=== PATIENT | male | born 1960 | race Caucasian/White ===

== ENCOUNTER → 2021-02-03 13:21 | Outpatient (BNVA) | payer OTHER, SELFPAY | PROVIDERS: PCP Internal Medicine; Visit Provider Physician Assistant | DX: M77.11 Lateral epicondylitis, right elbow (principal); M77.12 Lateral epicondylitis, left elbow | CPT/HCPCS: 20551; J1020 ==

== ENCOUNTER 2021-04-08 11:20 | Outpatient (REF) | payer OTHER, SELFPAY | END 2021-04-08 11:21 | disposition home or self-care (01) | LOC: HO.LNP 11:20 | PROVIDERS: Visit Provider Hospitalist | DX: J01.90 Acute sinusitis, unspecified (principal); Z20.822 Contact with and (suspected) exposure to COVID-19 | CPT/HCPCS: U0003; U0005 ==

== ENCOUNTER 2021-06-24 09:23 | Outpatient (REF) | payer OTHER, SELFPAY ==
[2021-06-24 10:03] LABS: COVID-19 Test Negative (Negative)
== END 2021-06-24 09:24 | disposition home or self-care (01) ==
LOC: HO.LAB 09:23
PROVIDERS: PCP Internal Medicine; Visit Provider Internal Medicine
DX: Z20.822 Contact with and (suspected) exposure to COVID-19 (principal)
CPT/HCPCS: 36415; 87635; C9803

== ENCOUNTER → 2021-07-06 15:18 | Outpatient (BNVA) | payer OTHER, SELFPAY | PROVIDERS: PCP Internal Medicine; Visit Provider Physician Assistant | DX: M77.12 Lateral epicondylitis, left elbow (principal) | CPT/HCPCS: 20550; 20551; J1020 ==

== ENCOUNTER 2021-10-20 11:07 | Outpatient (REF) | payer OTHER, SELFPAY ==
[2021-10-20 14:35] LABS: Binax Internal Control QC Valid; Binax Now Covid-19 Ag Positive (Negative)
== END 2021-10-20 11:08 | disposition home or self-care (01) ==
LOC: HO.HMGCLDS 11:07
PROVIDERS: Visit Provider Internal Medicine
DX: Z20.822 Contact with and (suspected) exposure to COVID-19 (principal)
CPT/HCPCS: 36415; C9803

== ENCOUNTER → 2022-01-11 13:15 | Outpatient (BNVA) | payer OTHER, SELFPAY | PROVIDERS: PCP Internal Medicine; Visit Provider Physician Assistant | DX: M77.12 Lateral epicondylitis, left elbow (principal) | CPT/HCPCS: 20551; J1020 ==

== ENCOUNTER 2022-02-01 08:20 | Outpatient (REF) | payer OTHER, SELFPAY ==
--- NOTE | ~2022-02-01 | XR_ITS ---
EXAMINATION: XR HAND, LEFT CLINICAL INFORMATION: Pain left hand. COMPARISON: None TECHNIQUE: PA, lateral, and oblique views of the left hand. FINDINGS: There is loss of PIP and DIP joint space with mild periarticular spurring. No bony erosive changes. No acute fracture or lytic process seen. No abnormal soft tissue swelling. XR/XR hand LT min 3V IMPRESSION: Mild degenerative changes PIP and DIP joints. No visible acute fracture or dislocation seen.
== END 2022-02-01 08:21 | disposition home or self-care (01) ==
LOC: HO.HOSX 08:20
PROVIDERS: Visit Provider Orthopaedic Surgery
DX: M79.642 Pain in left hand (principal)
CPT/HCPCS: 73130

== ENCOUNTER 2022-02-14 15:30 | Outpatient (RCR) | payer OTHER, SELFPAY ==
--- NOTE | 2022-01-24 16:27 | MHC.OT.OEV ---
[address] [phone] F: [phone] Occupational Therapy Evaluation Diagnosis: Lateral epicondylitis ,left elbow Date of Onset: 07/15/20 Date of Surgery: Attending Provider: David Murillo PA-C Prescribed Treatment: Eval and treat MD Follow Up Appointment: History of Current Condition: Pt reports an onset of bilateral elbow pain and swelling. Referred to Orthopedics, elbows injected with some improvement, recurrence , injected, OT in [facility] with improvement . Right elbow improved with last injection and elbow protection this past June. Left not improved. Injected 2 wks ago for the 3rd time and referred to OT Lapse in care due to Covid precautions Significant Medical History: HTN. Bilateral shoulder bone spurs.. 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 Good family support Current Level of Function and Occupation Self Care, Employment, Leisure: Indep with ADL Modified work tasks to avoid left arm strain as able No golf, bowling, little yard work due to UE pain Sleep: WNL Driving: WNL Vision: Glasses Balance: Pain Assessment Pain Score: 4 Pain Scale Used: Numeric (0 - 10) Pain Location and Description: 4 left elbow. achy, pinch Aggravating Factors: Gripping,lifting , repetitive motion with the left Alleviating Factors: Skin and Soft Tissue Assessment Skin and Soft Tissue: Comments: Nerve assessment Ulnar Nerve: WNL Median Nerve: WNL Radial Nerve: WNL Comments: MMT Sensory Assessment Temperature: Light Touch: WNL Proprioception: Vibration: Comments: Edema Assessment Upper Extremity: WNL Lower Extremity: Comments: Dexterity Assessment Dexterity: WNL Comments: Special Tests Comments: AROM(PROM) Strength Cervical Cervical Flexion: Cervical Extension: Cervical Lateral Flexion: Cervical Rotation: Comments: Shoulder Flexion: Extension: Abduction: Internal Rotation: External Rotation: Comments: WNL Flexion: Extension: Abduction: Internal Rotation: External Rotation: Comments: Elbow Flexion: Extension: Pronation: Supination: Comments: WNL Flexion: Extension: Pronation: Supination: Comments: Wrist Flexion: R 75 L 60 Extension: R 50 L 55 Ulnar Deviation: Radial Deviation: Comments: L with low elbow pain on ext Flexion: Extension: Ulnar Deviation: Radial Deviation: Comments: Thumb Thumb CMC Flexion: Thumb MCP Flexion: Thumb IP Flexion: Radial Abduction: Palmar Abduction: Wingate (Kapandji 0-10): Comments: WFL Digits Index MCP: PIP: DIP: Long MCP: PIP: DIP: Ring MCP: PIP: DIP: Small MCP: PIP: DIP: Comments: WFL Gross Grasp: R 65 LB L 60 LB With pain Lateral Pinch: Two-Point Pinch: Three-Jaw Lai: Comments: L 60 lb pain free with CFB on Patient Education Primary Language: Slovenian 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 Patient demonstrates Patient verbalizes Needs reinforcement Barriers to Learning: None Readiness for Learning: Accepting Who was educated? 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 His right elbow pain is now resolved after injections and therapy however he continues to have left elbow pain limiting his daily activities. He reports no improvement in left elbow pain after the 3rd injection to his elbow 2 weeks ago. Today he presents with S+S consistent with his dx of lateral epicondylitis He will benefit from OT to improve left elbow and upper quadrant strength to prevent recurrance. STG Duration: 3 wks Short Term Goals: Pt will demo upper body warm up ex and stretching to use before work day Pt will verbalize lateral epicondylitis protection techniques with daily activities Pt will demo scapula stabilization ex for UE injury prevention Report mild difficulty using his left hand with home tasks, using activity modifications as needed Tolerate eccentric strengthening to left wrist without inc in elbow pain LTG Duration: 6 wks Chcf Goals: Indep in self management of left lateral epicondylitis Report occassional low pain with work tasks with use of CFB and modifications as needed 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
--- NOTE | 2022-02-14 16:09 | MHC.OT.DC ---
[address] [phone] F: [phone] Occupational Therapy Discharge Note Provider: David Murillo PA-C Diagnosis: Lateral epicondylitis ,left elbow Date of Surgery: Date of Evaluation: 01/24/22 Date of Discharge: 02/14/22 Treatments to Date: 4 Cancellations to Date: 0 No Shows to Date: 0 Discharge Status: Achieved Goals Improved Function Independent with HEP Discharge Summary: Pt reports occassional low left elbow pain at a 1-2 . Pt working, doing some yard work and some deck work without difficulty. He is indep with his HEP and elbow protection techniques. Left grain weigher strength is equal to his right hand at 75 lb . Goals met. Electronically Signed By: Estela Baugh OT CHT CLT Reviewed/agree with student documentation: N/A Therapist: Please Sign and return to therapist, thank you for your referral.
== END 2022-02-14 16:10 | disposition home or self-care (01) ==
LOC: HO.OT 15:30
PROVIDERS: PCP Internal Medicine; Visit Provider Physician Assistant
DX: M77.12 Lateral epicondylitis, left elbow (principal)
CPT/HCPCS: 97035; 97110; 97165

== ENCOUNTER → 2022-03-01 13:44 | Outpatient (BNVA) | payer OTHER, SELFPAY | PROVIDERS: PCP Internal Medicine; Visit Provider Orthopaedic Surgery | DX: M72.1 Knuckle pads (principal) | CPT/HCPCS: 11900; 20600; J1100 ==

== ENCOUNTER 2022-09-04 06:07 | Outpatient (REF) | payer OTHER, SELFPAY ==
[2022-09-04 11:38] LABS: MANUAL DIFF FLAG NO
[2022-09-04 11:57] LABS: Basophils Percent Auto 0.5 % (0-2); Eosinophils Absolute Auto 0.2 X10*3/uL (0.0-0.4); Eosinophils Percent Auto 2.1 % (0-4); Hematocrit 47.4 % (42.0-52.0); Hemoglobin 16.6 g/dl (14.0-18.0); Imm Gran Abs Auto 0.03 X10*3/uL (0.00-0.03); Imm Gran Pct Auto 0.4 % (0.0-0.4); Lymphocytes Absolute Auto 1.6 X10*3/uL (1.2-4.9); Lymphocytes Percent Auto 21.2 % (20-40); Mean Corpuscular Hemoglobin 33.3 pg (27.0-33.0); Mean Corpuscular Volume 95.2 fL (80.0-98.0); Mean Platelet Volume 10.9 fL (9.4-12.4); Monocytes Absolute Auto 0.8 X10*3/uL (0.1-1.2); Neutrophils Percent Auto 65.8 % (45-73); Platelet Count 200 X10*3/uL (160-400); Red Blood Count 4.98 X10*6/uL (4.60-5.80); Red Cell Distribution Width 11.4 % (11.0-16.0); White Blood Count 7.6 X10*3/uL (4.8-10.8)
[2022-09-04 12:20] LABS: Alanine Aminotransferase 57 U/L (0-40); Albumin Level 4.5 g/dL (3.5-5.0); Alkaline Phosphatase 60 U/L (39-117); Anion Gap 14 (12-20); Aspartate Amino Transferase 51 U/L (5-37); Bilirubin Total 0.8 mg/dL (0.0-1.0); Blood Urea Nitrogen 15 mg/dL (9-16); Calcium 9.5 mg/dL (8.4-10.2); Carbon Dioxide 27 mmol/L (22-29); Chloride 98 mmol/L (96-108); Cholesterol 215 mg/dL; Estimated Glomerular Filt Rate > 60; Glucose Fasting 170 mg/dL (60-99); HDL Cholesterol 46 mg/dL; LDL Cholesterol Calculated 146 mg/dl; Potassium 4.4 mmol/L (3.3-5.1); Sodium 135 mmol/L (135-145); Total Protein 7.6 g/dL (6.5-8.0); Triglycerides 119 mg/dL
== END 2022-09-04 06:08 | disposition home or self-care (01) ==
LOC: HO.HMGCLDS 06:07
PROVIDERS: PCP Internal Medicine; Visit Provider Internal Medicine
DX: Z00.00 Encounter for general adult medical examination without abnormal findings (principal); Z12.5 Encounter for screening for malignant neoplasm of prostate; Z13.0 Encounter for screening for diseases of the blood and blood-forming organs and certain disorders involving the immune mechanism; E78.5 Hyperlipidemia, unspecified; I10 Essential (primary) hypertension
CPT/HCPCS: 36415; 80053; 80061; 84153; 85025

== ENCOUNTER 2023-01-22 06:13 | Outpatient (REF) | payer OTHER, SELFPAY ==
[2023-01-22 11:12] LABS: MANUAL DIFF FLAG NO
[2023-01-22 11:23] LABS: Basophils Percent Auto 0.7 % (0-2); Eosinophils Absolute Auto 0.2 X10*3/uL (0.0-0.4); Eosinophils Percent Auto 2.8 % (0-4); Hematocrit 44.1 % (42.0-52.0); Hemoglobin 15.4 g/dl (14.0-18.0); Imm Gran Abs Auto 0.02 X10*3/uL (0.00-0.03); Imm Gran Pct Auto 0.4 % (0.0-0.4); Lymphocytes Absolute Auto 1.6 X10*3/uL (1.2-4.9); Lymphocytes Percent Auto 29.4 % (20-40); Mean Corpuscular HGB Conc 34.9 g/dl (31.0-36.0); Mean Corpuscular Volume 94.6 fL (80.0-98.0); Mean Platelet Volume 10.4 fL (9.4-12.4); Monocytes Absolute Auto 0.5 X10*3/uL (0.1-1.2); Monocytes Percent Auto 9.5 % (2-11); Neutrophils Absolute Auto 3.1 x10*3/uL (2.0-8.3); Neutrophils Percent Auto 57.2 % (45-73); Platelet Count 175 X10*3/uL (160-400); Red Blood Count 4.66 X10*6/uL (4.60-5.80); Red Cell Distribution Width 11.7 % (11.0-16.0); White Blood Count 5.4 X10*3/uL (4.8-10.8)
[2023-01-22 11:37] LABS: Alanine Aminotransferase 56 U/L (0-40); Albumin Level 4.1 g/dL (3.5-5.0); Alkaline Phosphatase 59 U/L (39-117); Anion Gap 15 (12-20); Aspartate Amino Transferase 53 U/L (5-37); Bilirubin Total 0.7 mg/dL (0.0-1.0); Blood Urea Nitrogen 10 mg/dL (9-16); Calcium 8.8 mg/dL (8.4-10.2); Carbon Dioxide 26 mmol/L (22-29); Chloride 102 mmol/L (96-108); Cholesterol 200 mg/dL; Estimated Glomerular Filt Rate > 60; Glucose Fasting 152 mg/dL (60-99); HDL Cholesterol 42 mg/dL; LDL Cholesterol Calculated 126 mg/dl; Potassium 3.8 mmol/L (3.3-5.1); Sodium 139 mmol/L (135-145); Total Protein 6.8 g/dL (6.5-8.0); Triglycerides 164 mg/dL
== END 2023-01-22 06:14 | disposition home or self-care (01) ==
LOC: HO.HMGCLDS 06:13
PROVIDERS: PCP Internal Medicine; Visit Provider Internal Medicine
DX: N28.9 Disorder of kidney and ureter, unspecified (principal); E78.5 Hyperlipidemia, unspecified; D64.9 Anemia, unspecified
CPT/HCPCS: 36415; 80053; 80061; 85025

== ENCOUNTER 2023-07-06 14:30 | Outpatient (AMB) | payer OTHER, SELFPAY ==
[2023-07-06 14:31] VITALS: BP 158/72; PULSE 86; O2SAT 99
--- NOTE | 2023-07-06 14:31 | MHC.PC.OV ---
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 Accompanied by: Self / Same As Patient Allergies oxycodone [OXYCODONE] Allergy (Intermediate, Verified 07/06/23 14:31) ITCHING acetaminophen [Percocet] Allergy (Unknown, Verified 07/06/23 14:31) itching penicillin G Allergy (Unknown, Verified 07/06/23 14:31) rash Medication List - Last Reconciled 07/10/23 by Luis Saravia MD amlodipine 10 mg PO DAILY hydrochlorothiazide 25 mg PO DAILY lisinopril 40 mg PO DAILY sildenafil (Viagra) 50 mg PO DAILY PRN Tobacco use date assessed: 01/24/23 Dental Screening Dental Screen Date: 07/06/23 Did you have a dental visit in the last 12 months?: Yes Did you have a dental problem in the last 6 months where you did not have access to dental care?: No Was dental information given to patient?: Patient has dentist HPI 3 Month F/Up HPI Details HTN on Rx; compliant PFSH Medical History Obesity High blood pressure Social History Housing: House Alcohol intake: never Patient Tobacco Use Status: Current everyday Tobacco user Tobacco use type: Cigarette e-Cigarette/Vaping Use: Never Used Second Hand Smoke Exposure: Yes service: No Current occupational status: employed 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 1. Little interest or pleasure in doing things: not at all 2. Feeling down, depressed, or hopeless: not at all 3. Trouble falling or staying asleep, or sleeping too much: not at all 4. Feeling tired or having little energy: not at all 5. Poor appetite or overeating: not at all 6. Feeling bad about yourself - or that you are a failure or have let yourself or your family down: not at all 7. Trouble concentrating on things, such as reading the newspaper or watching television: not at all 8. Moving or speaking so slowly that other people could have noticed. Or the opposite - being so fidgety or restless that you have been moving around a lot more than usual: not at all 9. Thoughts that you would be better off or of hurting yourself in some way: not at all Total score: 0 Depression Screening Interpretation: Negative Source: Developed by Drs. Vamsi Rivera, Mery Bowers, Collin Willams and colleagues, with an educational leandra from [employer]. Thrive Questionnaire Date Thrive assessed: 01/24/23 AUDIT C Alcohol Use Questionnaire (AUDIT-C) 1. How often do you have a drink containing alcohol?: Never 3. How often do you have six or more drinks on one occasion?: Never Total Score: 0 Score Reviewed/Action Taken: Yes HAIM-7 AMB Questionnaire HAIM-7 Date HAIM - 7 assessed: 01/24/23 Source: Developed by Drs. Vamsi Rivera, Mery Bowers, Collin Willams and colleagues, with an educational leandra from [employer]. Review of Systems Const Denies chills, Denies headache(s) and Denies weight loss ENT Denies headache(s) Card Denies chest pain, Denies syncope, Denies irregular heart rhythm and Denies dyspnea Resp Denies chest congestion, Denies cough and Denies dyspnea GI Denies abdominal pain, Denies change in stool character, Denies nausea and Denies vomiting Musc Denies deformity and Denies joint swelling Neuro Denies syncope and Denies headache(s) Physical exam (Primary Care) Vital Signs: Last Vital Signs Pulse 86 07/06/23 14:31 BP 158/72 H 07/06/23 14:31 Pulse Ox 99 07/06/23 14:31 Oxygen Delivery Method Room Air 07/06/23 14:31 BMI result Body Mass Index 30.0 Tobacco/Smoking Status: Tobacco use Status Tobacco use date assessed 01/24/23 07/06/23 14:37 Patient Tobacco Use Status Current everyday Tobacco 07/06/23 14:37 Tobacco use type Cigarette 07/06/23 14:37 e-Cigarette/Vaping Use Never Used 07/06/23 14:37 PHQ-9: PHQ-9 Score PHQ-9: Total score 0 07/06/23 14:37 Depression Screening Interpretation: Negative Thrive Assessment: Date of Thrive Assessment Date Thrive assessed 01/24/23 07/06/23 14:37 Const General: cooperative, comfortable, no acute distress and alert Neck Neck: Yes no lymphadenopathy Thyroid: Thyroid normal Resp Effort & Inspection: normal respiratory effort Auscultation: clear to auscultation bilaterally Percussion: percussion normal Cardio Jugular venous distension: no JVD Palpation: normal PMI Rate: regular rate Rhythm: regular rhythm Heart sounds: S1 normal heart sound present and S2 normal heart sound present GI Inspection: Yes normal to inspection Palpation (GI): No hepatosplenomegaly present Skin General skin exam: no rashes or lesions noted Extrem General: Yes no clubbing, cyanosis or edema Assessment and Plan Assessment & Plan (1) Hypertension: Code(s): I10 - Essential (primary) hypertension Plan: stable; same rx Coding Level of Care Code Est Pt Level 3 (79794) Diagnoses Hypertension I10
== END 2023-07-06 14:44 | disposition home or self-care (01) ==
PROVIDERS: PCP Internal Medicine; Visit Provider Internal Medicine
DX: I10 Essential (primary) hypertension (principal)
CPT/HCPCS: 99213

== ENCOUNTER 2023-10-05 13:58 | Outpatient (AMB) | payer OTHER, SELFPAY ==
[2023-10-05 14:02] VITALS: BP 148/80; PULSE 85; O2SAT 99; BMI 29.3
--- NOTE | 2023-10-05 14:02 | MHC.PC.OV ---
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 Accompanied by: Self / Same As Patient Allergies oxycodone [OXYCODONE] Allergy (Intermediate, Verified 10/05/23 14:03) ITCHING acetaminophen [Percocet] Allergy (Unknown, Verified 10/05/23 14:03) itching penicillin G Allergy (Unknown, Verified 10/05/23 14:03) rash Medication List - Last Reconciled 10/05/23 by Luis Saravia MD amlodipine 10 mg PO DAILY hydrochlorothiazide 25 mg PO DAILY lisinopril 40 mg PO DAILY sildenafil (Viagra) 50 mg PO DAILY PRN Tobacco use date assessed: 01/24/23 Dental Screening Dental Screen Date: 10/05/23 Did you have a dental visit in the last 12 months?: Yes Did you have a dental problem in the last 6 months where you did not have access to dental care?: No Was dental information given to patient?: Patient has dentist HPI 3mth f/u HPI Details HTN on Rx; doing well; compliant [facility] Medical History Obesity High blood pressure Social History Housing: House Alcohol intake: never Patient Tobacco Use Status: Current everyday Tobacco user Tobacco use type: Cigarette e-Cigarette/Vaping Use: Never Used Second Hand Smoke Exposure: Yes service: No Current occupational status: employed 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 Vamsi Rivera, Mery Bowers, Collin Willams and colleagues, with an educational leandra from [employer]. Review of Systems Const Denies chills, Denies headache(s) and Denies weight loss ENT Denies headache(s) Card Denies chest pain, Denies syncope, Denies irregular heart rhythm and Denies dyspnea Resp Denies chest congestion, Denies cough and Denies dyspnea GI Denies abdominal pain, Denies change in stool character, Denies nausea and Denies vomiting Musc Denies deformity and Denies joint swelling Neuro Denies syncope and Denies headache(s) Physical exam (Primary Care) Vital Signs: Last Vital Signs Pulse 85 10/05/23 14:02 BP 148/80 H 10/05/23 14:02 Pulse Ox 99 10/05/23 14:02 Oxygen Delivery Method Room Air 10/05/23 14:02 BMI result Body Mass Index 29.3 Tobacco/Smoking Status: Tobacco use Status Tobacco use date assessed 01/24/23 10/05/23 14:07 Patient Tobacco Use Status Current everyday Tobacco 10/05/23 14:07 Tobacco use type Cigarette 10/05/23 14:07 e-Cigarette/Vaping Use Never Used 10/05/23 14:07 Thrive Assessment: Date of Thrive Assessment Date Thrive assessed 01/24/23 10/05/23 14:07 Const General: cooperative, comfortable, no acute distress and alert Neck Neck: Yes no lymphadenopathy Thyroid: Thyroid normal Resp Effort & Inspection: normal respiratory effort Auscultation: clear to auscultation bilaterally Percussion: percussion normal Cardio Jugular venous distension: no JVD Palpation: normal PMI Rate: regular rate Rhythm: regular rhythm Heart sounds: S1 normal heart sound present and S2 normal heart sound present GI Inspection: Yes normal to inspection Palpation (GI): No hepatosplenomegaly present Skin General skin exam: no rashes or lesions noted Extrem General: Yes no clubbing, cyanosis or edema Assessment and Plan Assessment & Plan (1) Hypertension: Code(s): I10 - Essential (primary) hypertension Plan: stable; same rx; do labs Orders: Orders Lipid Panel Today E78.5 - Hyperlipidemia, unspecified Complete Blood Count Auto Diff Today D64.9 - Anemia, unspecified Comprehensive [place]. Panel Fast Today N28.9 - Disorder of kidney and ureter, unspecified Hemoglobin A1c Today R73.9 - Hyperglycemia, unspecified Coding Level of Care Code Est Pt Level 3 (82447) Diagnoses Hypertension I10
== END 2023-10-05 14:17 | disposition home or self-care (01) ==
PROVIDERS: PCP Internal Medicine; Visit Provider Internal Medicine
DX: I10 Essential (primary) hypertension (principal)
CPT/HCPCS: 99213

== ENCOUNTER 2023-12-31 06:21 | Outpatient (REF) | payer BC, SELFPAY ==
[2023-12-31 11:10] LABS: MANUAL DIFF FLAG NO
[2023-12-31 11:23] LABS: Basophils Percent Auto 0.5 % (0-2); Eosinophils Absolute Auto 0.2 X10*3/uL (0.0-0.4); Hematocrit 43.4 % (42.0-52.0); Hemoglobin 15.2 g/dl (14.0-18.0); Imm Gran Abs Auto 0.02 X10*3/uL (0.00-0.03); Imm Gran Pct Auto 0.4 % (0.0-0.4); Lymphocytes Absolute Auto 1.9 X10*3/uL (1.2-4.9); Lymphocytes Percent Auto 34.1 % (20-40); Mean Corpuscular Hemoglobin 33.4 pg (27.0-33.0); Mean Corpuscular Volume 95.4 fL (80.0-98.0); Mean Platelet Volume 10.1 fL (9.4-12.4); Monocytes Absolute Auto 0.5 X10*3/uL (0.1-1.2); Monocytes Percent Auto 9.2 % (2-11); Neutrophils Percent Auto 52.8 % (45-73); Platelet Count 209 X10*3/uL (160-400); Red Blood Count 4.55 X10*6/uL (4.60-5.80); Red Cell Distribution Width 11.4 % (11.0-16.0); White Blood Count 5.7 X10*3/uL (4.8-10.8)
[2023-12-31 11:48] LABS: Estimated Average Glucose 140 mg/dL; Hemoglobin A1c % 6.5 % (<6.0)
[2023-12-31 11:59] LABS: Alanine Aminotransferase 29 U/L (0-40); Albumin Level 4.1 g/dL (3.5-5.0); Alkaline Phosphatase 53 U/L (39-117); Anion Gap 16 (12-20); Aspartate Amino Transferase 25 U/L (5-37); Bilirubin Total 0.4 mg/dL (0.0-1.0); Blood Urea Nitrogen 11 mg/dL (9-16); Calcium 8.8 mg/dL (8.4-10.2); Carbon Dioxide 25 mmol/L (22-29); Chloride 104 mmol/L (96-108); Cholesterol 191 mg/dL (<200); Estimated Glomerular Filt Rate > 60; Glucose Fasting 114 mg/dL (60-99); HDL Cholesterol 45 mg/dL (>40); LDL Cholesterol Calculated 114 mg/dL (<100); Potassium 3.7 mmol/L (3.3-5.1); Sodium 141 mmol/L (135-145); Total Protein 7.2 g/dL (6.5-8.0); Triglycerides 160 mg/dL (<150)
== END 2023-12-31 06:22 | disposition home or self-care (01) ==
LOC: HO.HMGCLDS 06:21
PROVIDERS: PCP Internal Medicine; Visit Provider Internal Medicine
DX: E78.5 Hyperlipidemia, unspecified (principal); D64.9 Anemia, unspecified; R73.9 Hyperglycemia, unspecified; N28.9 Disorder of kidney and ureter, unspecified
CPT/HCPCS: 36415; 80053; 80061; 83036; 85025

== ENCOUNTER 2024-01-09 13:59 | Outpatient (AMB) | payer BC, SELFPAY ==
[2024-01-09 14:04] VITALS: BP 150/82; PULSE 93; O2SAT 100
--- NOTE | 2024-01-09 14:04 | MHC.PC.OV ---
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 Axle: Not Required per policy Accompanied by: Self / Same As Patient Allergies oxycodone [OXYCODONE] Allergy (Intermediate, Verified 01/09/24 14:04) ITCHING acetaminophen [Percocet] Allergy (Unknown, Verified 01/09/24 14:04) itching penicillin G Allergy (Unknown, Verified 01/09/24 14:04) rash Medication List - Last Reconciled 01/10/24 by Luis Saravia MD amlodipine 10 mg PO DAILY hydrochlorothiazide 25 mg PO DAILY lisinopril 40 mg PO DAILY sildenafil (Viagra) 50 mg PO DAILY PRN Tobacco use date assessed: 01/09/24 Dental Screening Dental Screen Date: 01/09/24 Did you have a dental visit in the last 12 months?: Yes Did you have a dental problem in the last 6 months where you did not have access to dental care?: No Was dental information given to patient?: Patient has dentist HPI 3 month f/u HPI Details htn on rx; non-compliant with sodium PFSH Medical History Obesity High blood pressure Social History Housing: House Alcohol intake: never Patient Tobacco Use Status: Current everyday Tobacco user Tobacco use type: Cigarette e-Cigarette/Vaping Use: Never Used Second Hand Smoke Exposure: Yes service: No Current occupational status: employed 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 Cognitive needs: Yes Hearing needs: No Vision needs: Yes Questionnaire Thrive Questionnaire Date Thrive assessed: 01/09/24 I am a: Patient What is your living situation today?: I have a steady place to live Within the past 12 months, did the food you bought not last and you didn't have the money to get more?: Never true Within the past 12 months, did you worry whether your food would run out before you got money to buy more?: Never true Do you have trouble paying for medicines?: No Do you have trouble getting transportation to medical appointments?: No Do you have trouble paying your heating and electricity bill?: No Do you have trouble taking care of your child, family member or friend?: No Do you have trouble with day-to-day activities such as bathing, preparing meals, shopping, managing finances, etc.?: No Are you currently unemployed and looking for a job?: No Are you interested in more education?: No Please select the resources that you would like help with: None THRIVE Score: 0 AUDIT C Alcohol Use Questionnaire (AUDIT-C) 1. How often do you have a drink containing alcohol?: Never 3. How often do you have six or more drinks on one occasion?: Never Total Score: 0 Score Reviewed/Action Taken: Yes HAIM-7 AMB Questionnaire HAIM-7 Date HAIM - 7 assessed: 01/09/24 Feeling nervous, anxious, or on edge: 0 = Not at all Not being able to stop or control worryin = Not at all Worrying too much about different things: 0 = Not at all Trouble relaxin = Not at all Being so restless that it is hard to sit still: 0 = Not at all Becoming easily annoyed or irritable: 0 = Not at all Feeling afraid as if something awful might happen: 0 = Not at all Total HAIM-7 score (0-4 normal; 5-9 mild; 10-14 moderate; 15-21 severe): 0 Source: Developed by Drs. Vamsi Rivera, Mery Bowers, Collin Willams and colleagues, with an educational leandra from [employer]. Review of Systems Const Denies chills, Denies headache(s) and Denies weight loss ENT Denies headache(s) Card Denies chest pain, Denies syncope, Denies irregular heart rhythm and Denies dyspnea Resp Denies chest congestion, Denies cough and Denies dyspnea GI Denies abdominal pain, Denies change in stool character, Denies nausea and Denies vomiting Musc Denies deformity and Denies joint swelling Neuro Denies syncope and Denies headache(s) Physical exam (Primary Care) Vital Signs: Last Vital Signs Pulse 93 01/09/24 14:04 BP 150/82 H 01/09/24 14:04 Pulse Ox 100 01/09/24 14:04 Oxygen Delivery Method Room Air 01/09/24 14:04 BMI result Body Mass Index 30.0 Tobacco/Smoking Status: Tobacco use Status Tobacco use date assessed 01/09/24 01/09/24 14:11 Patient Tobacco Use Status Current everyday Tobacco 01/09/24 14:11 Tobacco use type Cigarette 01/09/24 14:11 e-Cigarette/Vaping Use Never Used 01/09/24 14:11 Thrive Assessment: Date of Thrive Assessment Date Thrive assessed 01/09/24 01/09/24 14:11 Const General: cooperative, comfortable, no acute distress and alert Neck Neck: Yes no lymphadenopathy Thyroid: Thyroid normal Resp Effort & Inspection: normal respiratory effort Auscultation: clear to auscultation bilaterally Percussion: percussion normal Cardio Jugular venous distension: no JVD Palpation: normal PMI Rate: regular rate Rhythm: regular rhythm Heart sounds: S1 normal heart sound present and S2 normal heart sound present GI Inspection: Yes normal to inspection Palpation (GI): No hepatosplenomegaly present Skin General skin exam: no rashes or lesions noted Extrem General: Yes no clubbing, cyanosis or edema Assessment and Plan Assessment & Plan (1) Hypertension: Code(s): I10 - Essential (primary) hypertension Plan: decrease sodium intake Orders: Orders Lipid Panel Today E78.5 - Hyperlipidemia, unspecified Medications: Refilled lisinopril 40 mg PO DAILY 90 tabs 8RF amlodipine 10 mg PO DAILY 90 tabs 8RF hydrochlorothiazide 25 mg PO DAILY 90 tabs 8RF Coding Level of Care Code Est Pt Level 3 (46594) Diagnoses Hypertension I10
== END 2024-01-09 14:22 | disposition home or self-care (01) ==
PROVIDERS: PCP Internal Medicine; Visit Provider Internal Medicine
DX: I10 Essential (primary) hypertension (principal)
CPT/HCPCS: 99213

== ENCOUNTER 2024-04-09 13:53 | Outpatient (AMB) | payer BC, SELFPAY ==
[2024-04-09 13:57] VITALS: BP 146/68; PULSE 89; O2SAT 99; BMI 29.7
--- NOTE | 2024-04-09 13:57 | A.OFFPC_ITS ---
Vital Signs 04/09/24 13:57 Height 5 ft 10 in Weight 207 lb 0.2 oz BMI 29.7 BP 146/68 H Blood Pressure Location Lt brachial Position Sitting Pulse 89 Pulse Source Pulse Oximeter Pulse Oximetry (%) 99 Oxygen Delivery Method Room Air Intake Visit Reasons: 3 month f/u Allergies oxycodone [OXYCODONE] Allergy (Intermediate, Verified 04/09/24 14:01) ITCHING acetaminophen [Percocet] Allergy (Unknown, Verified 04/09/24 14:01) itching penicillin G Allergy (Unknown, Verified 04/09/24 14:01) rash Medication List - Last Reconciled 04/09/24 by Luis Saravia MD amlodipine 10 mg PO DAILY hydrochlorothiazide 25 mg PO DAILY lisinopril 40 mg PO DAILY sildenafil (Viagra) 50 mg PO DAILY PRN Tobacco use date assessed: 04/09/24 Dental Screening Dental Screen Date: 01/09/24 HPI 3 month f/u HPI Details htn on rx; doing well; compliant [facility] Medical History Obesity High blood pressure Social History Housing: House Alcohol intake: never Patient Tobacco Use Status: Current everyday Tobacco user Tobacco use type: Cigarette e-Cigarette/Vaping Use: Never Used Second Hand Smoke Exposure: Yes service: No Current occupational status: employed 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 How often do you have a drink containing alcohol?: Never 3. How often do you have six or more drinks on one occasion?: Never Total Score: 0 Score Reviewed/Action Taken: Yes HAIM-7 AMB Questionnaire HAIM-7 Date HAIM - 7 assessed: 01/09/24 Source: Developed by Drs. Vamsi Rivera, Mery Bowers, Collin Willams and colleagues, with an educational leandra from [facility]. Review of Systems Const Denies chills, Denies headache(s) and Denies weight loss ENT Denies headache(s) Card Denies chest pain, Denies syncope, Denies irregular heart rhythm and Denies dyspnea Resp Denies chest congestion, Denies cough and Denies dyspnea GI Denies abdominal pain, Denies change in stool character, Denies nausea and Denies vomiting Musc Denies deformity and Denies joint swelling Neuro Denies syncope and Denies headache(s) Physical exam (Primary Care) Vital Signs: Last Vital Signs Pulse 89 04/09/24 13:57 BP 146/68 H 04/09/24 13:57 Pulse Ox 99 04/09/24 13:57 Oxygen Delivery Method Room Air 04/09/24 13:57 BMI result Body Mass Index 29.7 Tobacco/Smoking Status: Tobacco use Status Tobacco use date assessed 04/09/24 04/09/24 14:01 Patient Tobacco Use Status Current everyday Tobacco 04/09/24 13:57 Tobacco use type Cigarette 04/09/24 13:57 e-Cigarette/Vaping Use Never Used 04/09/24 13:57 Thrive Assessment: Date of Thrive Assessment Date Thrive assessed 01/09/24 04/09/24 13:57 Const General: cooperative, comfortable, no acute distress and alert Neck Neck: Yes no lymphadenopathy Thyroid: Thyroid normal Resp Effort & Inspection: normal respiratory effort Auscultation: clear to auscultation bilaterally Percussion: percussion normal Cardio Jugular venous distension: no JVD Palpation: normal PMI Rate: regular rate Rhythm: regular rhythm Heart sounds: S1 normal heart sound present and S2 normal heart sound present GI Inspection: Yes normal to inspection Palpation (GI): No hepatosplenomegaly present Skin General skin exam: no rashes or lesions noted Extrem General: Yes no clubbing, cyanosis or edema Assessment and Plan Assessment & Plan (1) Hypertension: Code(s): I10 - Essential (primary) hypertension Plan: stable; same rx Orders: Orders Lipid Panel Today Z13.220 - Encounter for screening for lipoid disorders Coding Level of Care Code Est Pt Level 3 (06424) Diagnoses Hypertension I10
== END 2024-04-09 14:21 | disposition home or self-care (01) ==
PROVIDERS: PCP Internal Medicine; Visit Provider Internal Medicine
DX: I10 Essential (primary) hypertension (principal)
CPT/HCPCS: 99213

== ENCOUNTER 2024-07-12 07:09 | Outpatient (REF) | payer BC, SELFPAY ==
[2024-07-12 11:42] LABS: Cholesterol 182 mg/dL (<200); HDL Cholesterol 45 mg/dL (>40); LDL Cholesterol Calculated 106 mg/dL (<100); Triglycerides 158 mg/dL (<150)
== END 2024-07-12 07:10 | disposition home or self-care (01) ==
LOC: HO.HMGCLDS 07:09
PROVIDERS: PCP Internal Medicine; Visit Provider Internal Medicine
DX: Z13.220 Encounter for screening for lipoid disorders (principal)
CPT/HCPCS: 36415; 80061

== ENCOUNTER 2024-07-14 14:00 | Outpatient (AMB) | payer BC, SELFPAY ==
[2024-07-14 14:07] VITALS: BP 146/80; PULSE 94; O2SAT 98; BMI 29.8
--- NOTE | 2024-07-14 14:07 | MHC.PC.OV ---
Vital Signs 07/14/24 14:07 Height 5 ft 10 in Weight 208 lb BMI 29.8 BP 146/80 H Blood Pressure Location Lt brachial Position Sitting Pulse 94 Pulse Source Pulse Oximeter Pulse Oximetry (%) 98 Intake Visit Reasons: 3 Month F/U Manager Risk Management Required: No Accompanied by: Self / Same As Patient Allergies oxycodone [OXYCODONE] Allergy (Intermediate, Verified 07/14/24 14:09) ITCHING acetaminophen [Percocet] Allergy (Unknown, Verified 07/14/24 14:09) itching penicillin G Allergy (Unknown, Verified 07/14/24 14:09) rash Medication List - Last Reconciled 07/14/24 by Luis Saravia MD amlodipine 10 mg PO DAILY hydrochlorothiazide 25 mg PO DAILY lisinopril 40 mg PO DAILY sildenafil (Viagra) 50 mg PO DAILY PRN Tobacco use date assessed: 04/09/24 Dental Screening Dental Screen Date: 01/09/24 HPI 3 Month F/U HPI Details HTN on Rx; doing well and compliant [facility] Medical History Obesity High blood pressure Social History Housing: House Alcohol intake: never Patient Tobacco Use Status: Current everyday Tobacco user Tobacco use type: Cigarette e-Cigarette/Vaping Use: Never Used Second Hand Smoke Exposure: Yes service: No Current occupational status: employed 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 1. Little interest or pleasure in doing things: not at all 2. Feeling down, depressed, or hopeless: not at all 3. Trouble falling or staying asleep, or sleeping too much: not at all 4. Feeling tired or having little energy: not at all 5. Poor appetite or overeating: not at all 6. Feeling bad about yourself - or that you are a failure or have let yourself or your family down: not at all 7. Trouble concentrating on things, such as reading the newspaper or watching television: not at all 8. Moving or speaking so slowly that other people could have noticed. Or the opposite - being so fidgety or restless that you have been moving around a lot more than usual: not at all 9. Thoughts that you would be better off or of hurting yourself in some way: not at all Total score: 0 Depression Screening Interpretation: Negative Depression Screening Done: Yes Source: Developed by Drs. Vamsi Rivera, Mery Bowers, Collin Willams and colleagues, with an educational leandra from [employer]. Thrive Questionnaire Date Thrive assessed: 01/09/24 Are you currently unemployed and looking for a job?: No AUDIT C Alcohol Use Questionnaire (AUDIT-C) 1. How often do you have a drink containing alcohol?: Never 3. How often do you have six or more drinks on one occasion?: Never Total Score: 0 Score Reviewed/Action Taken: Yes HAIM-7 AMB Questionnaire HAIM-7 Date HAIM - 7 assessed: 01/09/24 Source: Developed by Drs. Vamsi Rivera, Mery Bowers, Collin Willams and colleagues, with an educational leandra from [employer]. Review of Systems Const Denies chills, Denies headache(s) and Denies weight loss ENT Denies headache(s) Card Denies chest pain, Denies syncope, Denies irregular heart rhythm and Denies dyspnea Resp Denies chest congestion, Denies cough and Denies dyspnea GI Denies abdominal pain, Denies change in stool character, Denies nausea and Denies vomiting Musc Denies deformity and Denies joint swelling Neuro Denies syncope and Denies headache(s) Physical exam (Primary Care) Vital Signs: Last Vital Signs Pulse 94 07/14/24 14:07 BP 146/80 H 07/14/24 14:07 Pulse Ox 98 07/14/24 14:07 BMI result Body Mass Index 29.8 Tobacco/Smoking Status: Tobacco use Status Tobacco use date assessed 04/09/24 07/14/24 14:12 Patient Tobacco Use Status Current everyday Tobacco 07/14/24 14:12 Tobacco use type Cigarette 07/14/24 14:12 e-Cigarette/Vaping Use Never Used 07/14/24 14:12 PHQ-9: PHQ-9 Score PHQ-9: Total score 0 07/14/24 14:12 Depression Screening Interpretation: Negative Thrive Assessment: Date of Thrive Assessment Date Thrive assessed 01/09/24 07/14/24 14:12 Const General: cooperative, comfortable, no acute distress and alert Neck Neck: Yes no lymphadenopathy Thyroid: Thyroid normal Resp Effort & Inspection: normal respiratory effort Auscultation: clear to auscultation bilaterally Percussion: percussion normal Cardio Jugular venous distension: no JVD Palpation: normal PMI Rate: regular rate Rhythm: regular rhythm Heart sounds: S1 normal heart sound present and S2 normal heart sound present GI Inspection: Yes normal to inspection Palpation (GI): No hepatosplenomegaly present Skin General skin exam: no rashes or lesions noted Extrem General: Yes no clubbing, cyanosis or edema Assessment and Plan Assessment & Plan (1) Hypertension: Code(s): I10 - Essential (primary) hypertension Plan: stable; same rx Coding Level of Care Code Est Pt Level 3 (18621) Diagnoses Hypertension I10
== END 2024-07-14 14:20 | disposition home or self-care (01) ==
PROVIDERS: PCP Internal Medicine; Visit Provider Internal Medicine
DX: I10 Essential (primary) hypertension (principal)

== ENCOUNTER → 2024-07-14 14:00 | Outpatient (BNVA) | payer BC, SELFPAY | PROVIDERS: PCP Internal Medicine; Visit Provider Internal Medicine ==

== ENCOUNTER 2024-10-20 14:03 | Outpatient (AMB) | payer BC, SELFPAY ==
--- NOTE | 2024-10-20 14:09 | MHC.PC.OV ---
Vital Signs 10/20/24 14:11 Height 5 ft 10 in Weight 207 lb 6 oz BMI 29.8 BP 150/80 H Blood Pressure Location Lt brachial Position Sitting Pulse 96 Pulse Source Pulse Oximeter Pulse Oximetry (%) 99 Oxygen Delivery Method Room Air Intake Visit Reasons: 3 month f/u Intake Note: Patient is here to follow up on HTN. Hospital Pharmacy Director Required: No Air Conditioning Equipment Mechanic: Not Required per policy Accompanied by: Self / Same As Patient Allergies oxycodone [OXYCODONE] Allergy (Intermediate, Verified 10/20/24 14:10) ITCHING acetaminophen [Percocet] Allergy (Unknown, Verified 10/20/24 14:10) itching penicillin G Allergy (Unknown, Verified 10/20/24 14:10) rash Medication List - Last Reconciled 10/20/24 by Luis Saravia MD amlodipine 10 mg PO DAILY hydrochlorothiazide 25 mg PO DAILY lisinopril 40 mg PO DAILY sildenafil (Viagra) 50 mg PO DAILY PRN Tobacco use date assessed: 10/20/24 Dental Screening Dental Screen Date: 10/20/24 Did you have a dental visit in the last 12 months?: Yes Did you have a dental problem in the last 6 months where you did not have access to dental care?: No Was dental information given to patient?: Patient has dentist HPI 3 month f/u HPI Details HTN on Rx; compliant; PFSH Medical History Obesity High blood pressure Surgical History (Updated 10/20/24 @ 14:14 by LORRAINE Segovia) History of shoulder surgery Social History (Updated 10/20/24 @ 14:14 by LORRAINE Segovia) Housing: House Alcohol intake: current Alcohol intake frequency: holidays/special occasions only Patient Tobacco Use Status: Current everyday Tobacco user Tobacco use type: Cigarette Cigarette Packs Per Day: 0.5 Cigarettes Per Day: 10 e-Cigarette/Vaping Use: Never Used Second Hand Smoke Exposure: Yes service: No Current occupational status: employed 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 1. Little interest or pleasure in doing things: not at all 2. Feeling down, depressed, or hopeless: not at all 3. Trouble falling or staying asleep, or sleeping too much: not at all 4. Feeling tired or having little energy: not at all 5. Poor appetite or overeating: not at all 6. Feeling bad about yourself - or that you are a failure or have let yourself or your family down: not at all 7. Trouble concentrating on things, such as reading the newspaper or watching television: not at all 8. Moving or speaking so slowly that other people could have noticed. Or the opposite - being so fidgety or restless that you have been moving around a lot more than usual: not at all 9. Thoughts that you would be better off or of hurting yourself in some way: not at all Total score: 0 Depression Screening Interpretation: Negative Depression Screening Done: Yes Source: Developed by Drs. Vamsi Rivera, Mery Bowers, Collin Willams and colleagues, with an educational leandra from [employer]. Thrive Questionnaire Date Thrive assessed: 10/20/24 I am a: Patient What is your living situation today?: I have a steady place to live Within the past 12 months, did the food you bought not last and you didn't have the money to get more?: Never true Within the past 12 months, did you worry whether your food would run out before you got money to buy more?: Never true Do you have trouble paying for medicines?: No Do you have trouble getting transportation to medical appointments?: No Do you have trouble paying your heating and electricity bill?: No Do you have trouble taking care of your child, family member or friend?: No Do you have trouble with day-to-day activities such as bathing, preparing meals, shopping, managing finances, etc.?: No Are you currently unemployed and looking for a job?: No Are you interested in more education?: No Please select the resources that you would like help with: None Currently or been in a relationship where the following occur: No concerns reported THRIVE Score: 0 AUDIT C Alcohol Use Questionnaire (AUDIT-C) 1. How often do you have a drink containing alcohol?: Never Total Score: 0 HAIM-7 AMB Questionnaire HAIM-7 Date HAIM - 7 assessed: 10/20/24 Feeling nervous, anxious, or on edge: 0 = Not at all Not being able to stop or control worryin = Not at all Worrying too much about different things: 0 = Not at all Trouble relaxin = Not at all Being so restless that it is hard to sit still: 0 = Not at all Becoming easily annoyed or irritable: 0 = Not at all Feeling afraid as if something awful might happen: 0 = Not at all Total HAIM-7 score (0-4 normal; 5-9 mild; 10-14 moderate; 15-21 severe): 0 Source: Developed by Drs. Vamsi Rivera, Mery Bowers, Collin Willams and colleagues, with an educational leandra from [employer]. Review of Systems Const Denies chills, Denies headache(s) and Denies weight loss ENT Denies headache(s) Card Denies chest pain, Denies syncope, Denies irregular heart rhythm and Denies dyspnea Resp Denies chest congestion, Denies cough and Denies dyspnea GI Denies abdominal pain, Denies change in stool character, Denies nausea and Denies vomiting Musc Denies deformity and Denies joint swelling Neuro Denies syncope and Denies headache(s) Physical exam (Primary Care) Vital Signs: Last Vital Signs Pulse 96 10/20/24 14:11 BP 150/80 H 10/20/24 14:11 Pulse Ox 99 10/20/24 14:11 Oxygen Delivery Method Room Air 10/20/24 14:11 BMI result Body Mass Index 29.8 Tobacco/Smoking Status: Tobacco use Status Tobacco use date assessed 10/20/24 10/20/24 14:16 Patient Tobacco Use Status Current everyday Tobacco 10/20/24 14:16 Tobacco use type Cigarette 10/20/24 14:16 e-Cigarette/Vaping Use Never Used 10/20/24 14:16 PHQ-9: PHQ-9 Score PHQ-9: Total score 0 10/20/24 14:16 Depression Screening Interpretation: Negative Thrive Assessment: Date of Thrive Assessment Date Thrive assessed 10/20/24 10/20/24 14:16 Currently or been in a relationship where the following occur: No concerns reported Const General: cooperative, comfortable, no acute distress and alert Neck Neck: Yes no lymphadenopathy Thyroid: Thyroid normal Resp Effort & Inspection: normal respiratory effort Auscultation: clear to auscultation bilaterally Percussion: percussion normal Cardio Jugular venous distension: no JVD Palpation: normal PMI Rate: regular rate Rhythm: regular rhythm Heart sounds: S1 normal heart sound present and S2 normal heart sound present GI Inspection: Yes normal to inspection Palpation (GI): No hepatosplenomegaly present Skin General skin exam: no rashes or lesions noted Extrem General: Yes no clubbing, cyanosis or edema Coding Level of Care Code Est Pt Level 3 (63622) Diagnoses Hypertension I10 Assessment & Plan Assessment & Plan (1) Hypertension: Code(s): I10 - Essential (primary) hypertension Category: Medical Plan: lose weight, careful with etoh and Na
[2024-10-20 14:11] VITALS: BP 150/80; PULSE 96; O2SAT 99; BMI 29.8
== END 2024-10-20 14:39 | disposition home or self-care (01) ==
PROVIDERS: PCP Internal Medicine; Visit Provider Internal Medicine
DX: I10 Essential (primary) hypertension (principal); Z23 Encounter for immunization

== ENCOUNTER → 2024-10-20 14:03 | Outpatient (BNVA) | payer BC, SELFPAY | PROVIDERS: PCP Internal Medicine; Visit Provider Internal Medicine | DX: I10 Essential (primary) hypertension (principal); Z23 Encounter for immunization | CPT/HCPCS: 90471; 90656; 96127 ==

== ENCOUNTER 2024-12-11 09:14 | Outpatient (REF) | payer BC, SELFPAY ==
[2024-12-11 14:43] LABS: Influenza A PCR NEGATIVE (Negative); Influenza B PCR NEGATIVE (Negative); Resp Syncy Virus RNA Qual PCR NEGATIVE (Negative); SARS COV2 PCR INHOUSE NEGATIVE (Negative)
== END 2024-12-11 09:15 | disposition home or self-care (01) ==
LOC: HO.LAB 09:14
PROVIDERS: PCP Internal Medicine; Visit Provider Physician Assistant
DX: J06.9 Acute upper respiratory infection, unspecified (principal)
CPT/HCPCS: 0241U

== ENCOUNTER 2024-12-11 09:14 | Outpatient (AMB) | payer BC, SELFPAY ==
--- NOTE | 2024-12-11 10:24 | AM.OFFWIN_ITS ---
Intake Vital Signs 12/11/24 10:29 Weight 210 lb 2 oz BP 140/90 H Blood Pressure Location Rt brachial Position Sitting Pulse 96 Pulse Source Pulse Oximeter Pulse Oximetry (%) 97 Oxygen Delivery Method Room Air Intake Visit Reasons: EP-chest and mid back pain from a fall Intake Note: Patient here for chest and mid back pain after a fall on ice 4 days ago. Patient Tobacco Use Status: Current everyday Tobacco user Allergies oxycodone [OXYCODONE] Allergy (Intermediate, Verified 12/11/24 10:30) ITCHING acetaminophen [Percocet] Allergy (Unknown, Verified 12/11/24 10:30) itching penicillin G Allergy (Unknown, Verified 12/11/24 10:30) rash Do you need a note to return to daycare/school/sports/work: No HPI HPI Comments History of Present Illness Details History - The patient is a 64-year-old male pres enting with upper respiratory symptoms and persistent back pain following a fall. - Reported a fall on ice 4 days ago, wit h resultant left-sided back pain similar to past rib injury. - The back pain makes productive coughin g difficult, requiring physical pressure on the back to aid in coughing. - The patient recently started using Muc inex, which has improved phlegm consistency. - The patient denies previous lung condi tions such as asthma or COPD - There is no history of fevers, chills, sinus discomfort, or ear pain. - A history of rib fracture was disclose d but without complication. Physical Exam General: Cooperative, healthy appearing, comfortable and no acute distress Orientation/consciousness: Patient oriented x3 Limitations: No limitations Head: Normal to inspection Ears: Hearing grossly normal bilaterally, external ears normal and TM's normal bilaterally Nose: Normal external nose present, Normal nares present and No nasal discharge present Face and sinus: Normal facial exam and Yes sinuses nontender Mouth: Normal oral and palatal mucosa present and moist mucous membranes Throat: Yes tonsils normal, Yes uvula midline. Posterior oropharynx erythema Eyes: Appearance normal, both eyes and all related structures Neck: Normal visual inspection Respiratory: inspiratory wheeze right side. Normal respiratory effort, able to speak in complete sentences, Actively coughing, no respiratory distress, not tachypneic, no tripod positioning and no use of accessory muscles. Cardiovascular: Regular rate and rhythm. Normal S1 and S2 Skin: No rashes or lesions noted Neuro: Patient oriented x3 Extremities: Normal to inspection and Yes no clubbing, cyanosis or edema PFSH Medical History (Updated 12/11/24 @ 10:37 by Jesi Carpenter PA-C) Obesity High blood pressure Surgical History (Updated 10/20/24 @ 14:14 by LORRAINE Segovia) History of shoulder surgery Social History (Updated 10/20/24 @ 14:14 by LORRAINE Segovia) Housing: House Alcohol intake: current Alcohol intake frequency: holidays/special occasions only Patient Tobacco Use Status: Current everyday Tobacco user Tobacco use type: Cigarette Cigarette Packs Per Day: 0.5 Cigarettes Per Day: 10 e-Cigarette/Vaping Use: Never Used Second Hand Smoke Exposure: Yes service: No Current occupational status: employed 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 Testing for influenza, COVID-19, and RSV will guide treatment approach, supplemented by a five-day course of prednisone to manage airway inflammation and enhance breathing capacity. For immediate relief of broncho-constriction, the patient is advised to use an inhaler up to every four to six hours. Ongoing management includes the continuation of Mucinex and increased fluid intake, in addition to the use of an antihistamine to address symptomatic congestion. To assess for potential rib fractures, an X-ray inclu sive of the ribs will be performed with follow-up communication for results and subsequent treatment decisions. Patient was informed and verbally consented to the use of an ambient scribe for clinic note documentation during this visit Orders: Orders XR chest 2V Today R05.9 - Cough, unspecified SARS-CoV2/FLU/RSV Today J06.9 - Acute upper respiratory infection, unspecified Medications: New albuterol sulfate 90 mcg/actuation 2 puffs inhalation Q6H PRN 8.5 grams 0RF shortness of breath or wheezing or cough prednisone 50 mg PO QAM 5 tabs 0RF Coding Level of Care Code Est Pt Level 3 (83663) Diagnoses URI, acute J06.9
[2024-12-11 10:29] VITALS: BP 140/90; PULSE 96; O2SAT 97
== END 2024-12-11 10:43 | disposition home or self-care (01) ==
PROVIDERS: PCP Internal Medicine; Visit Provider Physician Assistant
DX: J06.9 Acute upper respiratory infection, unspecified (principal)

== ENCOUNTER 2024-12-11 10:41 | Outpatient (REF) | payer BC, SELFPAY ==
--- NOTE | ~2024-12-11 | XR_ITS ---
EXAMINATION: XR CHEST 2 VIEWS HISTORY: R05.9 - Cough, unspecified COMPARISON: Comparison is made with the prior examination dated 10/27/2019. FINDINGS: PA and lateral views of the chest are submitted. The lungs are expanded and clear. There is no pleural effusion, pneumothorax, or pulmonary vascular congestion. The heart is normal in size. There is degenerative disc disease of the spine. There are multiple old healed right rib fractures. XR/XR chest 2V IMPRESSION: No acute cardiopulmonary abnormality. Electronically signed by: Vamsi Mike MD 12/11/2024 11:23 AM [facility] [place]
== END 2024-12-11 10:42 | disposition home or self-care (01) ==
LOC: HO.HMGCX 10:41
PROVIDERS: PCP Internal Medicine; Visit Provider Physician Assistant
DX: R05.9 Cough, unspecified (principal)
CPT/HCPCS: 71046

== ENCOUNTER → 2024-12-11 10:43 | Outpatient (BNV) | payer BC, SELFPAY | PROVIDERS: PCP Internal Medicine; Visit Provider Radiology Diagnostic Radiology | DX: R05.9 Cough, unspecified (principal) | CPT/HCPCS: 71046 ==

== ENCOUNTER 2025-01-23 13:26 | Outpatient (AMB) | payer BC, SELFPAY ==
[2025-01-23 13:29] VITALS: BP 158/82; PULSE 102; O2SAT 98; BMI 29.6
--- NOTE | 2025-01-23 13:29 | A.OFFPC_ITS ---
Vital Signs 01/23/25 13:29 01/23/25 14:13 Height 5 ft 10 in Weight 206 lb 2 oz BMI 29.6 BP 158/82 H 140/70 H Blood Pressure Location Lt brachial Lt radial Position Sitting Sitting Pulse 102 H Pulse Source Pulse Oximeter Pulse Oximetry (%) 98 Oxygen Delivery Method Room Air Intake Visit Reasons: BLOSSOM from Dr. Saravia /3mth f/u Allergies oxycodone [OXYCODONE] Allergy (Intermediate, Verified 01/23/25 13:30) ITCHING penicillin G Allergy (Unknown, Verified 01/23/25 13:30) rash Medication List - Last Reconciled 01/23/25 by Mercedes Atwood MD amlodipine 10 mg PO DAILY hydrochlorothiazide 25 mg PO DAILY lisinopril 40 mg PO DAILY sildenafil (Viagra) 50 mg PO DAILY PRN Tobacco use date assessed: 01/23/25 Dental Screening Dental Screen Date: 01/23/25 Did you have a dental visit in the last 12 months?: Yes Did you have a dental problem in the last 6 months where you did not have access to dental care?: No Was dental information given to patient?: Patient has dentist [facility] Medical History (Updated 01/23/25 @ 14:22 by Mercedes Atwood MD) Obesity High blood pressure Surgical History (Updated 01/23/25 @ 14:18 by Mercedes Atwood MD) H/O vasectomy History of tonsillectomy History of shoulder surgery Family History (Updated 01/23/25 @ 14:19 by Mercedes Atwood MD) Father Lymphoma Social History (Updated 01/23/25 @ 14:20 by Mercedes Atwood MD) Housing: House Alcohol intake: current Alcohol intake frequency: holidays/special occasions only Comment: once a day 2-3 glasses Patient Tobacco Use Status: Current everyday Tobacco user Tobacco use type: Cigarette Cigarette Packs Per Day: 0.5 Cigarettes Per Day: 15 Years Smoked: since 22 years old stopped 10 years e-Cigarette/Vaping Use: Never Used Second Hand Smoke Exposure: Yes service: No Current occupational status: employed 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 1. Little interest or pleasure in doing things: not at all 2. Feeling down, depressed, or hopeless: not at all 3. Trouble falling or staying asleep, or sleeping too much: not at all 4. Feeling tired or having little energy: not at all 5. Poor appetite or overeating: not at all 6. Feeling bad about yourself - or that you are a failure or have let yourself or your family down: not at all 7. Trouble concentrating on things, such as reading the newspaper or watching television: not at all 8. Moving or speaking so slowly that other people could have noticed. Or the opposite - being so fidgety or restless that you have been moving around a lot more than usual: not at all 9. Thoughts that you would be better off or of hurting yourself in some way: not at all Total score: 0 Depression Screening Interpretation: Negative Depression Screening Done: Yes 33234 - PHQ-9 Billing: Yes Source: Developed by Drs. Vamsi Rivera, Mery Bowers, Collin Willams and colleagues, with an educational leandra from [employer]. Thrive Questionnaire Date Thrive assessed: 10/20/24 AUDIT C Alcohol Use Questionnaire (AUDIT-C) 1. How often do you have a drink containing alcohol?: Never Total Score: 0 HAIM-7 AMB Questionnaire HAIM-7 Date HAIM - 7 assessed: 10/20/24 Source: Developed by Drs. Vamsi Rivera, Collin Cárdenas and colleagues, with an educational leandra from [employer]. Physical exam (Primary Care) Vital Signs: Last Vital Signs Pulse 102 H 01/23/25 13:29 BP 140/70 H 01/23/25 14:13 Pulse Ox 98 01/23/25 13:29 Oxygen Delivery Method Room Air 01/23/25 13:29 BMI result Body Mass Index 29.6 Tobacco/Smoking Status: Tobacco use Status Tobacco use date assessed 01/23/25 01/23/25 13:35 Patient Tobacco Use Status Current everyday Tobacco 01/23/25 14:20 Tobacco use type Cigarette 01/23/25 14:20 e-Cigarette/Vaping Use Never Used 01/23/25 14:20 PHQ-9: PHQ-9 Score PHQ-9: Total score 0 01/23/25 14:37 Depression Screening Interpretation: Negative Thrive Assessment: Date of Thrive Assessment Date Thrive assessed 10/20/24 01/23/25 13:35 Const General: alert; No acute distress Eyes Conjunctivae: conjunctivae normal Resp Auscultation: clear to auscultation bilaterally Cardio Rate: regular rate Rhythm: regular rhythm GI Inspection: Yes normal to inspection Extrem General: Yes normal to inspection and No edema Immunizations pneumoc 20-sarina conj-dip cr(PF) 0.5 mL IM syringe Performing Provider: Mercedes Atwood MD Performing Location[place] [facility] Administered by: Emani Matthews CMA on 01/23/25 14:37 Dose Route Admin Location Dispensed Lot Number Expiration Date [facility] Member Of [employer] 0.5 mL IM Left Deltoid 0.5 mL [id number] 01/23/25 0934-2217-64 [email or web address] VIS Given Date VIS Provided VIS Publication Date 01/23/25 Single Vaccine 21 Eligibility Eligibility Date Funding Source Not [facility] Eligible 01/23/25 Private Coding Level of Care Code Est Pt Level 4 (20273) Complex EM visit Add On G2211 Diagnoses Hypertension I10 Type 2 diabetes mellitus with hyperglycemia E11.65 Hypercholesterolemia E78.00 Overweight (BMI 25.0-29.9) E66.3 Endocarditis I38 Tobacco abuse Z72.0 Additional Codes PHQ-9 - 16517 - PHQ-9 Billing: Yes ([id number]) Assessment & Plan Assessment & Plan (1) Hypertension: Code(s): I10 - Essential (primary) hypertension Category: Medical Plan: Continue with blood pressure medication. Decrease salt intake and exercise on amlodipine 10 mg once a day hydrochlorothiazide 25 mg once a day lisinopril 40 mg once a (2) Type 2 diabetes mellitus with hyperglycemia: Code(s): E11.65 - Type 2 diabetes mellitus with hyperglycemia Category: Medical Plan: Decrease the amount of carbohydrate intake, pasta, bread, rice and potatoes are all sugar and that is aside from all the sweet stuff, remember that fruits are good but they are Sweet also. Hemoglobin A1c goal of less than 6.5. (3) Hypercholesterolemia: Code(s): E78.00 - Pure hypercholesterolemia, unspecified Category: Medical Plan: Avoid fried foods, chicken skin, eggs, butter margarine, pastries and meat. Be it pork or beef they have a lot of cholesterol LDL goal of less than 100 and triglyceride of less than 150 (4) Overweight (BMI 25.0-29.9): Code(s): E66.3 - Overweight Category: Medical Plan: Diet and exercise (5) Endocarditis: Comment: 1989 Code(s): I38 - Endocarditis, valve unspecified Category: Medical (6) Tobacco abuse: Code(s): Z72.0 - Tobacco use Category: Medical Plan History of Present Illness The patient is a 64-year-old male presenting for routine chronic disease management and preventive care. His medical history includes essential hypertens ion, managed with a combination of amlodipine, hydrochlorothiazide, and lisinopril, as well as type 2 diabetes mellitus evidenced by fasting glucose levels between 152-170 mg/dL and a hemoglobin A1c of 6.5%. Hypercholesterolemia management aims for an LDL target of less than 100 mg/dL, with recent levels slightly exceeding this target. He reports a history of infective endocarditis over three decades ago and acknowledges current tobacco use, smoking half to three-quarters a pack daily, and regular alcohol intake. The patient has undergone bilateral shoulder surgeries for bone spurs. The visit focused on addressing uncontrolled hypertension, guiding diabetes management without pharmacological intervention at present, and advising lifestyle adjustments for dyslipidemia and weight management. Health Maintenance - Blood pressure management discussed with monitoring at home and possible medication adjustment if home readings are persistently elevated - Diabetes management with a target hemoglobin A1c of less than 6.5% while avoiding medication at present - Cholesterol management with a goal of LDL less than 100 mg/dL; discussed benefits of diet and exercise - Encouraged cessation of tobacco use and discussed potential for lung cancer screening - Scheduled colonoscopy for routine surveillance - Discussed uptake of pneumonia vaccination due to his smoking status and diabetes risk Social History - Drinks two to three glasses of wine daily; culturally linked consumption - Smoking half to three-quarters a pack of cigarettes daily; ongoing for approximately 30 years with a 10-year cessation period previously - Discussed having smoked since his 20s - Emphasized importance of nutritional modifications and increased physical activity Review of Systems - Cardiovascular: Denies history of heart attacks or liver disease - Respiratory: Denies diagnosed asthma; used albuterol after a breathing difficulty incident - Gastrointestinal: Reports no significant abdominal issues; bowel movements regular - Genitourinary: Denies urinary concerns - Neurological: Denies seizures - Ophthalmologic: Managed dry eye with artificial tears - Surgically: Reports history of bilateral shoulder surgeries for bone spurs Physical Exam - Cardiovascular- Detected heart murmur without significant clinical findings - No other physical exam findings were explicitly noted in the conversation Results - Labs: Previous elevated fasting blood glucose levels (152-170 mg/dL), hemoglobin A1c of 6.5% - Cholesterol: LDL recorded as 106-114 mg/dL - Liver function test: Elevated levels with values of 56 and 55; above normal range Plan The management plan involves home blood pressure monitoring due to elevated readings despite maximum doses of antihypertensive medications. For type 2 diabetes mellitus, non-pharmacological management is currently suitable, emphasizing the importance of diet and lifestyle changes to improve control. The goal for LDL cholesterol management is under 100 mg/dL, with dietary and exercise recommendations in place. I encouraged cessation strategies for tobacco use and discussed initiating lung cancer screening. We agreed on preventive measures, including a colonoscopy and pneumonia vaccination, to address broader health maintenance. Patient was informed and verbally consented to the use of an ambient scribe for clinic note documentation during this visit. Discussion Notes We discussed the management and control strategies for essential hypertension and type 2 diabetes mellitus, emphasizing the importance of dietary changes, increased exercise, and smoking cessation. Potential complications associated with uncontrolled blood pressure and chronic conditions were outlined, with recommended follow-up of blood pressure readings and adjustment of medications as necessary. I addressed the importance of controlling hemoglobin A1c levels and the benefits of lifestyle modifications over medication initiation at this stage. The need for a pneumonia vaccine due to diabetes and smoking status was agreed upon, and the patient's health maintenance plan includes well-being check-ups every three months. Patient Instructions - Monitor blood pressure at home using a reliable blood pressure monitor - Maintain a balanced diet and regular physical activity to manage weight, blood sugar, and cholesterol levels - Schedule and complete the colonoscopy as planned - Obtain pneumonia vaccination due to increased risk factors - Discuss tobacco cessation options and participate in lung cancer screening as per recommendations - Schedule follow-up appointments regularly to review progress and make necessary adjustments to the management plan Orders: Orders Complete Blood Count Auto Diff Today E11.65 - Type 2 diabetes mellitus with hyperglycemia Thyroid Stimulating Hormone Today E11.65 - Type 2 diabetes mellitus with hyperglycemia Vitamin B12 and Folate Today E11.65 - Type 2 diabetes mellitus with hyperglycemia Creatinine Urine Today E11.65 - Type 2 diabetes mellitus with hyperglycemia Comprehensive Met. Panel Today E11.65 - Type 2 diabetes mellitus with hyperglycemia Free T4 (Free Thyroxine) Today E11.65 - Type 2 diabetes mellitus with hyperglycemia Lipid Panel Today E11.65 - Type 2 diabetes mellitus with hyperglycemia, E78.00 - Pure hypercholesterolemia, unspecified Prostate Specific Antigen Scr Today E11.65 - Type 2 diabetes mellitus with hyperglycemia Hemoglobin A1c Today E11.65 - Type 2 diabetes mellitus with hyperglycemia Microalbumin, Random (w Creat) Today E11.65 - Type 2 diabetes mellitus with hyperglycemia Pneumococcal 20 Immunization Today Z23 - Encounter for immunization Referrals Lung Cancer Screening Referral Z72.0 - Tobacco use
--- OUTSIDE RECORDS SUMMARY | 2025-01-23 13:46 | XMS_ITS | Patient Health Record ---
Author Organization [facility] Address [address] [facility] [address] [place] [id number] Care Team Providers Care Habilitation Worker Name Role Phone Luis Saravia MD Primary Care Provider aMrv Perez Jr Reason For Referral No Information Medications Medication SIG (Take, Route, Frequency, Duration) Notes Start Date End Date Status OsmoPrep 1.102-0.398 GM 32 tablets Orall y over two days as directed for 2 day(s) 06/30/2013 10/15/2024 Active Lisinopril Active hydroCHLOROthiazide Active Problems Problem Type SNOMED Code ICD Code Onset Dates Problem Status W/U Status Risk Notes Problem Long-term current use of drug therapy (262114848) Encounter for long-term (current) use of other medications (V58.69) Active confirmed Problem Colon cancer screening (979508761) Colon cancer screening (V76.51) Active confirmed Plan Of Treatment Future Test Test Name Order Date COLONOSCOPY 06/30/2013 Next Appt Details Provider Name:Marv green Jr, 04/13/2025 01:35:00 PM, [address], [address], [place], [address], Insurance Providers Payer Name Payer Address Payer Phone Subscriber Number Group Number Insured Name Patient Relationship to Insured Coverage Start Date Coverage End Date [facility] [address] [place] [address] [phone] [id number] JASS CRAIG Self - patient is the insured Medical (General) History Medical History History ICD Code hypertension
[2025-01-23 14:13] VITALS: BP 140/70
== END 2025-01-23 14:46 | disposition home or self-care (01) ==
LOC: HO.HMCH 13:26
PROVIDERS: PCP Internal Medicine; Visit Provider Internal Medicine
DX: I10 Essential (primary) hypertension (principal); E11.65 Type 2 diabetes mellitus with hyperglycemia; E78.00 Pure hypercholesterolemia, unspecified; E66.3 Overweight; I38 Endocarditis, valve unspecified; Z72.0 Tobacco use; Z23 Encounter for immunization

== ENCOUNTER → 2025-01-23 13:26 | Outpatient (BNVA) | payer BC, SELFPAY | PROVIDERS: PCP Internal Medicine; Visit Provider Internal Medicine | DX: I10 Essential (primary) hypertension (principal); Z23 Encounter for immunization; E11.65 Type 2 diabetes mellitus with hyperglycemia; E78.00 Pure hypercholesterolemia, unspecified; E66.3 Overweight; I38 Endocarditis, valve unspecified; Z72.0 Tobacco use; Z79.899 Other long term (current) drug therapy | CPT/HCPCS: 90471; 90677; 96127 ==

== ENCOUNTER 2025-03-20 09:45 | Outpatient (AMB) | payer BC, SELFPAY ==
--- NOTE | 2025-03-20 08:03 | A.OFFVIS_ITS ---
Intake Visit Reasons: Current Smoker Allergies oxycodone [OXYCODONE] Allergy (Intermediate, Verified 01/23/25 13:30) ITCHING penicillin G Allergy (Unknown, Verified 01/23/25 13:30) rash HPI HPI Current Smoker: Details: Initial visit for this 64yo smoker with a 40PYH. Patient started smoking at age 16 for 48 years at 1ppd. Currently at 1/4ppd. . Denies marijuana use. Denies second hand smoke exposure. Denies exposure to chemicals or substances like asbestos. . Denies known family history of lung cancer. Denies personal history of cancers. Denies chest CT in last year. . Denies recent travel outside the [place]. Denies recent respiratory illness or recent hospitalization for respiratory issues. History testing positive for COVID. Admits receiving COVID Vaccines. . Denies fever, chills, new/worsening cough, hemoptysis, hoarseness or dysphagia. Denies significant chest pain, significant dyspnea or unintentional weight loss. Patient Lung Cancer Screening Questionnaire reviewed with patient by provider. . Shared Decision Making Completed. Patient meets criteria. Discussed in detail with patient, the risk vs benefit of LDCT screening. Patient consents to proceed with scan. Discussed smoking cessation. [facility] Medical History (Updated 03/20/25 @ 10:08 by Cathi Dong PA-C) History of endocarditis Hypertension Hypercholesterolemia Type 2 diabetes mellitus with hyperglycemia Nicotine dependence, cigarettes, uncomplicated Surgical History (Updated 02/19/25 @ 13:23 by Cathi Dong PA-C) History of colonoscopy History of shoulder surgery History of tonsillectomy History of vasectomy Family History (Updated 01/23/25 @ 14:19 by Mercedes Atwood MD) Father Lymphoma Social History (Updated 03/20/25 @ 10:08 by Cathi Dong PA-C) Housing: House Alcohol intake: current Alcohol intake frequency: holidays/special occasions only Comment: once a day 2-3 glasses Patient Tobacco Use Status: Current everyday Tobacco user Tobacco use type: Cigarette Cigarettes Per Day: 1 Years Smoked: (onset 16yo, 1ppd x 48yrs, now 1/4ppd - 40pyh) e-Cigarette/Vaping Use: Never Used Second Hand Smoke Exposure: Yes service: No Current occupational status: employed 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 - Patient meets criteria for LDCT for lung cancer screening purposes and is asymptomatic. - Smoking cessation counseling offered. Patients can always call [phone]. - Will arrange for a LDCT scan of the chest for screening purposes at [facility]. - Risks, benefits, and alternatives were discussed in detail and the patient agrees to proceed. - Risks discussed include but are not limited to: radiation exposure, anxiety during testing and while awaiting results, false negatives, false positives and possibility of additional intervention such as further imaging or surgical procedures for benign disease. - Benefits are obviously detection of lung cancer at an early stage which can lead to improved outcomes. - Discussed the importance of screening program compliance with adherence to yearly LDCT scan as scheduled - or sooner interval scans for personalized screening regimen. - Discussed follow up plan. Our office will send a letter discussing results and if needed set up phone call and office visit based on CT findings. - Patient educated on results categorization and the management decisions for suspicious findings potentially found on the screening LDCT scan. Any patient with a Lung RADS score of 3 or 4 will be reviewed by a multidisciplinary team at [facility] to form a plan of action in regards to scan findings. - If further work up is warranted for a suspicious lung finding this will be followed by the Lung Cancer Screening program in conjunction with the Thoracic Surgery Department at [facility]. - A copy of the office note and LDCT will be sent to the patient's PCP - as well as documentation on any associated further plans of care. - Incidental findings on LDCT are the PCP's responsibility. These findings are indicated with an S finding on the LDCT Assessment. A note discussing the findings will be sent to the PCP who is then responsible for further management. - All questions answered.? Coding Level of Care Code Lung Cancer Screening G0296 Diagnoses Nicotine dependence, cigarettes, uncomplicated F17.210
--- OUTSIDE RECORDS SUMMARY | 2025-03-20 10:22 | XMS_ITS | Patient Health Record ---
Author Organization [facility] Address [address] [facility] [address] [place] [id number] Care Team Providers Care Statistician Name Role Phone Luis Saravia MD Primary Care Provider Marv Perez Jr [phone] Reason For Referral No Information Medications Medication SIG (Take, Route, Frequency, Duration) Notes Start Date End Date Status OsmoPrep 1.102-0.398 GM 32 tablets Orall y over two days as directed for 2 day(s) 06/30/2013 10/15/2024 Active Lisinopril Active hydroCHLOROthiazide Active Problems Problem Type SNOMED Code ICD Code Onset Dates Problem Status W/U Status Risk Notes Problem Long-term current use of drug therapy (603469703) Encounter for long-term (current) use of other medications (V58.69) Active confirmed Problem Colon cancer screening (V76.51) Active confirmed Plan Of Treatment Future Test Test Name Order Date COLONOSCOPY 06/30/2013 Next Appt Details Provider Name:Marv green Jr, 04/13/2025 01:35:00 PM, [address] [place] [address], [address], [place], [address], Insurance Providers Payer Name Payer Address Payer Phone Subscriber Number Group Number Insured Name Patient Relationship to Insured Coverage Start Date Coverage End Date [facility] [address] [place] [address] [id number] JASS CRAIG Self - patient is the insured Medical (General) History Medical History History ICD Code hypertension
== END 2025-03-20 10:41 | disposition home or self-care (01) ==
LOC: HO.HPS 09:46
PROVIDERS: PCP Internal Medicine; Referring Provider Internal Medicine; Visit Provider Physician Assistant Medical
DX: F17.210 Nicotine dependence, cigarettes, uncomplicated (principal)
CPT/HCPCS: G0296

== ENCOUNTER 2025-03-20 10:16 | Outpatient (REF) | payer BC, SELFPAY ==
--- NOTE | ~2025-03-20 | CT_ITS ---
CLINICAL HISTORY: F17.210 - Nicotine dependence, cigarettes, uncomplicated CT lung cancer screening (LDCT) Comparison: None Technique: Axial CT images of the chest using low-dose technique. Referring provider counseled the patient on shared decision-making for LDCT screening. Additional counseling was provided on smoking cessation. Effective radiation dose total: DLP 52.6 mGycm, CTDIvol 1.6 mGy. Findings: No pulmonary nodules are noted. There are minimal coronary artery calcifications. Limited upper abdomen: Unremarkable Other: None Impression: LungRADS 1: Negative exam. Continue annual screening with low dose Chest CT in 12 months. ##L1# Category 1: Normal; continue annual screening Category 2: Benign appearance or behavior, continue annual screening Category 3: Probably benign, [address] recommended Category 4A: Suspicious, [address] recommended; may consider PET/CT Category 4B: Suspicious, Additional diagnostics and/or tissue sampling recommended Category 4X: Suspicious, Additional diagnostics and/or tissue sampling recommended Category 0: Recalls (incomplete screen due to Incomplete coverage, Noise, Respiratory motion, Expiration, Obscured by acute abnormality) This document has been electronically signed by: Ventura Agrawal MD on 03/20/2025 11:46:12
== END 2025-03-20 10:17 | disposition home or self-care (01) ==
LOC: HO.CT 10:16
PROVIDERS: PCP Internal Medicine; Visit Provider Physician Assistant Medical
DX: Z12.2 Encounter for screening for malignant neoplasm of respiratory organs (principal); F17.210 Nicotine dependence, cigarettes, uncomplicated
CPT/HCPCS: 71271

== ENCOUNTER → 2025-03-20 10:17 | Outpatient (BNV) | payer BC, SELFPAY | PROVIDERS: PCP Internal Medicine; Visit Provider Radiology Diagnostic Radiology | DX: F17.210 Nicotine dependence, cigarettes, uncomplicated (principal) | CPT/HCPCS: 71271 ==

== ENCOUNTER 2025-05-01 06:04 | Outpatient (REF) | payer BC, SELFPAY ==
[2025-05-01 10:05] LABS: MANUAL DIFF FLAG NO
[2025-05-01 10:19] LABS: Hematocrit 40.8 % (42.0-52.0); Hemoglobin 14.6 g/dl (14.0-18.0); Imm Gran Abs Auto 0.02 X10*3/uL (0.00-0.03); Imm Gran Pct Auto 0.4 % (0.0-0.4); Lymphocytes Absolute Auto 1.7 X10*3/uL (1.2-4.9); Mean Corpuscular HGB Conc 35.8 g/dl (31.0-36.0); Mean Corpuscular Hemoglobin 34.2 pg (27.0-33.0); Mean Corpuscular Volume 95.6 fL (80.0-98.0); NRBC Abs Auto 0.000 X10*3/uL (0.0-0.012); NRBC Pct Auto 0.0 /100WBC (0.0-0.2); Platelet Count 184 X10*3/uL (160-400); Red Blood Count 4.27 X10*6/uL (4.60-5.80); White Blood Count 5.6 X10*3/uL (4.8-10.8)
[2025-05-01 10:31] LABS: Hemoglobin A1C 168.2563 umol/L; Total Hemoglobin (HGBA1C) 3710.7006 umol/L
[2025-05-01 10:54] LABS: Alanine Aminotransferase 44 U/L (0-40); Albumin Level 4.2 g/dL (3.5-5.0); Alkaline Phosphatase 47 U/L (39-117); Anion Gap 13 (12-20); Aspartate Amino Transferase 35 U/L (5-37); Blood Urea Nitrogen 11 mg/dL (9-16); Calcium 8.7 mg/dL (8.4-10.2); Carbon Dioxide 26 mmol/L (22-29); Chloride 106 mmol/L (96-108); Cholesterol 173 mg/dL (<200); Estimated Glomerular Filt Rate > 60; HDL Cholesterol 39 mg/dL (>40); Potassium 3.7 mmol/L (3.3-5.1); Sodium 141 mmol/L (135-145); Total Protein 6.9 g/dL (6.5-8.0); Triglycerides 174 mg/dL (<150)
[2025-05-01 11:16] LABS: Folate 4.1 ng/mL (> or = 4.0); Vitamin B12 326 pg/mL (200-900)
[2025-05-01 11:20] LABS: Free T4 (Free Thyroxine) 0.87 ng/dL (0.71-1.85); Thyroid Stimulating Hormone 1.31 uIU/mL (0.32-4.0)
[2025-05-01 11:30] LABS: Microalbum/Creatinine Ratio Ur 11.4 ug/mg cr (<30)
== END 2025-05-01 06:05 | disposition home or self-care (01) ==
LOC: HO.HMGCLDS 06:04
PROVIDERS: PCP Internal Medicine; Visit Provider Internal Medicine
DX: E11.65 Type 2 diabetes mellitus with hyperglycemia (principal); E78.00 Pure hypercholesterolemia, unspecified; Z12.5 Encounter for screening for malignant neoplasm of prostate
CPT/HCPCS: 36415; 80053; 80061; 82043; 82570; 82607; 82746; 83036; 84153; 84439; 84443; 85025

== ENCOUNTER 2025-05-05 14:35 | Outpatient (AMB) | payer BC, SELFPAY ==
[2025-05-05 14:36] VITALS: BP 140/90; PULSE 92; RESP 18; TEMP 36.3; O2SAT 99; BMI 28.6
--- NOTE | 2025-05-05 14:36 | MHC.PC.OV ---
Vital Signs 05/05/25 14:36 Height 5 ft 10 in Weight 199 lb 8 oz BMI 28.6 BP 140/90 H Blood Pressure Location Lt brachial Position Sitting Respiration 18 Pulse 92 Pulse Source Pulse Oximeter Temp 97.3 F Temp Source Temporal Artery Scan Pulse Oximetry (%) 99 Oxygen Delivery Method Room Air Intake Visit Reasons: DM Allergies oxycodone (OXYCODONE) Allergy (Intermediate, Verified 05/05/25 14:40) ITCHING penicillin G Allergy (Unknown, Verified 05/05/25 14:40) rash Medication List - Last Reconciled 05/05/25 by Mercedes Atwood MD amlodipine 10 mg PO DAILY hydrochlorothiazide 25 mg PO DAILY lisinopril 40 mg PO DAILY sildenafil (Viagra) 50 mg PO DAILY PRN Tobacco use date assessed: 05/05/25 Dental Screening Dental Screen Date: 05/05/25 Did you have a dental visit in the last 12 months?: Yes Did you have a dental problem in the last 6 months where you did not have access to dental care?: No Was dental information given to patient?: Patient has dentist [facility] Medical History History of endocarditis Hypertension Hypercholesterolemia Type 2 diabetes mellitus with hyperglycemia Nicotine dependence, cigarettes, uncomplicated Surgical History History of colonoscopy History of shoulder surgery History of tonsillectomy History of vasectomy Family History Father Lymphoma Social History Housing: House Alcohol intake: current Alcohol intake frequency: holidays/special occasions only Comment: once a day 2-3 glasses Patient Tobacco Use Status: Current everyday Tobacco user Tobacco use type: Cigarette Cigarettes Per Day: 1 Years Smoked: (onset 16yo, 1ppd x 48yrs, now 1/4ppd - 40pyh) e-Cigarette/Vaping Use: Never Used Second Hand Smoke Exposure: Yes service: No Current occupational status: employed 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 1. Little interest or pleasure in doing things: not at all 2. Feeling down, depressed, or hopeless: not at all 3. Trouble falling or staying asleep, or sleeping too much: not at all 4. Feeling tired or having little energy: not at all 5. Poor appetite or overeating: not at all 6. Feeling bad about yourself - or that you are a failure or have let yourself or your family down: not at all 7. Trouble concentrating on things, such as reading the newspaper or watching television: not at all 8. Moving or speaking so slowly that other people could have noticed. Or the opposite - being so fidgety or restless that you have been moving around a lot more than usual: not at all 9. Thoughts that you would be better off or of hurting yourself in some way: not at all Total score: 0 Source: Developed by Drs. Vamsi Rivera, Mery Bowers, Collin Willams and colleagues, with an educational leandra from [employer]. Thrive Questionnaire Date Thrive assessed: 10/20/24 I am a: Patient What is your living situation today?: I have a steady place to live Within the past 12 months, did the food you bought not last and you didn't have the money to get more?: Never true Within the past 12 months, did you worry whether your food would run out before you got money to buy more?: Never true Do you have trouble paying for medicines?: No Do you have trouble getting transportation to medical appointments?: No Do you have trouble paying your heating and electricity bill?: No Do you have trouble taking care of your child, family member or friend?: No Do you have trouble with day-to-day activities such as bathing, preparing meals, shopping, managing finances, etc.?: No Are you currently unemployed and looking for a job?: No Are you interested in more education?: No Please select the resources that you would like help with: None Currently or been in a relationship where the following occur: No concerns reported THRIVE Score: 0 AUDIT C Alcohol Use Questionnaire (AUDIT-C) 1. How often do you have a drink containing alcohol?: 2-3 times a week 2. How many drinks containing alcohol do you have on a typical day when you are drinking?: 3 or 4 3. How often do you have six or more drinks on one occasion?: Never Total Score: 4 HAIM-7 AMB Questionnaire HAIM-7 Date HAIM - 7 assessed: 10/20/24 Feeling nervous, anxious, or on edge: 0 = Not at all Not being able to stop or control worryin = Not at all Worrying too much about different things: 0 = Not at all Trouble relaxin = Not at all Being so restless that it is hard to sit still: 0 = Not at all Becoming easily annoyed or irritable: 0 = Not at all Feeling afraid as if something awful might happen: 0 = Not at all Total HAIM-7 score (0-4 normal; 5-9 mild; 10-14 moderate; 15-21 severe): 0 Source: Developed by Drs. Vasmi Rivera, Mery Bowers, Collin Willams and colleagues, with an educational leandra from [employer]. Physical exam (Primary Care) Vital Signs: Last Vital Signs Temp 97.3 F 05/05/25 14:36 Pulse 92 05/05/25 14:36 Resp 18 05/05/25 14:36 BP 140/90 H 05/05/25 14:36 Pulse Ox 99 05/05/25 14:36 Oxygen Delivery Method Room Air 05/05/25 14:36 BMI result Body Mass Index 28.6 Tobacco/Smoking Status: Tobacco use Status Tobacco use date assessed 05/05/25 05/05/25 14:41 Patient Tobacco Use Status Current everyday Tobacco 05/05/25 14:41 Tobacco use type Cigarette 05/05/25 14:41 e-Cigarette/Vaping Use Never Used 05/05/25 14:41 PHQ-9: PHQ-9 Score PHQ-9: Total score 0 05/05/25 14:56 Thrive Assessment: Date of Thrive Assessment Date Thrive assessed 10/20/24 05/05/25 14:41 Currently or been in a relationship where the following occur: No concerns reported Const General: alert; No acute distress Eyes Conjunctivae: conjunctivae normal Resp Auscultation: clear to auscultation bilaterally Cardio Rate: regular rate Rhythm: regular rhythm GI Inspection: Yes normal to inspection Extrem General: Yes normal to inspection and No edema Coding Level of Care Code Est Pt Level 4 (71770) Complex EM visit Add On G2211 Diagnoses Hypertension I10 Hypercholesterolemia E78.00 Type 2 diabetes mellitus with hyperglycemia E11.65 Overweight (BMI 25.0-29.9) E66.3 Nicotine dependence, cigarettes, uncomplicated F17.210 Assessment & Plan Assessment & Plan (1) Hypertension: Code(s): I10 - Essential (primary) hypertension Category: Medical Plan: Continue with blood pressure medication. Decrease salt intake and exercise presently on amlodipine 10 mg once a day hydrochlorothiazide 25 mg once a day lisinopril 40 mg once a day (2) Hypercholesterolemia: Code(s): E78.00 - Pure hypercholesterolemia, unspecified Category: Medical Plan: Avoid fried foods, chicken skin, eggs, butter margarine, pastries and meat. Be it pork or beef they have a lot of cholesterol LDL goal of less than 100 and triglyceride of less than 150 patient not on any medication but the LDL is 100 (3) Type 2 diabetes mellitus with hyperglycemia: Code(s): E11.65 - Type 2 diabetes mellitus with hyperglycemia Category: Medical Plan: Decrease the amount of carbohydrate intake, pasta, bread, rice and potatoes are all sugar and that is aside from all the sweet stuff, remember that fruits are good but they are Sweet also. Diet controlled hemoglobin A1c goal of less than 6.5 (4) Overweight (BMI 25.0-29.9): Code(s): E66.3 - Overweight Category: Medical Plan: Diet and exercise (5) Nicotine dependence, cigarettes, uncomplicated: Comment: (onset 16yo, 1ppd x 48yrs, now 1/4ppd - 40pyh) March 2025 CT Code(s): F17.210 - Nicotine dependence, cigarettes, uncomplicated Category: Medical Plan: Patient is in the lung cancer screening program Plan History of Present Illness The patient is a 64-year-old male presenting for a follow-up visit. He has a history of hypertension, diabetes mellitus, and hypercholesterolemia. The patient is currently on amlodipine, hydrochlorothiazide, and lisinopril for blood pressure management. The patient reports a 7-pound weight loss over the past week, which is a new concern. He is a smoker and has a history of endocarditis. Recent laboratory tests show normal blood count, platelet count, and renal function. However, liver function tests are mildly elevated, with an LFT of 44, and LDL cholesterol is at 100 mg/dL. Triglycerides are elevated at 174 mg/dL, and hemoglobin A1c is 6.3%. The patient is part of a lung cancer screening program and had a recent CT scan of the chest, which was negative. He is scheduled for a colonoscopy on May 08. Health Maintenance - Colon cancer screening scheduled for May 08 - Lung cancer screening program participation - Monitoring of blood pressure at home - Dietary modifications to manage diabetes and cholesterol Social History - Smoking: Patient is a current smoker and is working on cessation. - Diet: Patient has reduced intake of sweets, particularly cookies, to manage diabetes. Review of Systems - General: Reports 7-pound weight loss over the past week. - Cardiovascular: Denies chest pain or palpitations. - Respiratory: Denies cough or dyspnea. Physical Exam Results - Labs: Normal blood count, normal platelet count, normal renal function, mildly elevated liver function tests (LFTs at 44), LDL cholesterol at 100 mg/dL, triglycerides at 174 mg/dL, hemoglobin A1c at 6.3%. - Imaging: CT scan of the chest on March 20 was negative. Plan The patient will continue with the current antihypertensive regimen of amlodipine, hydrochlorothiazide, and lisinopril, and is advised to monitor blood pressure at home regularly. A low-dose atorvastatin has been prescribed to manage hypercholesterolemia, with a follow-up lipid panel scheduled in three months. Dietary modifications are recommended to manage diabetes and cholesterol levels, with a goal to maintain hemoglobin A1c below 6.5%. The patient is encouraged to continue participating in the lung cancer screening program and to proceed with the scheduled colonoscopy on May 08. Smoking cessation support is advised, and the patient is encouraged to reduce smoking. Folic acid supplementation is recommended due to borderline levels, and liver function will be monitored due to mild elevation. Patient was informed and verbally consented to the use of an ambient scribe for clinic note documentation during this visit. Discussion Notes During the visit, I discussed the importance of managing hypertension, diabetes, and hypercholesterolemia with the patient. We reviewed the need for regular blood pressure monitoring at home and the benefits of starting a low-dose atorvastatin to reduce cardiovascular risk. I emphasized the significance of dietary modifications and smoking cessation to improve overall health outcomes. The patient was informed about the upcoming colonoscopy and the continuation of the lung cancer screening program. We also discussed the need for folic acid supplementation and monitoring liver function tests due to mild elevation. Patient Instructions - Continue taking blood pressure medications as prescribed. - Monitor blood pressure at home twice a week. - Start taking atorvastatin 10 mg daily. - Follow a healthy diet to manage diabetes and cholesterol. - Attend the scheduled colonoscopy on May 08. - Continue participating in the lung cancer screening program. - Reduce smoking and seek support for cessation. - Take folic acid supplement as directed. Orders: Orders Comprehensive Met. Panel 3 Months E78.00 - Pure hypercholesterolemia, unspecified Lipid Panel 3 Months E78.00 - Pure hypercholesterolemia, unspecified Vitamin B12 and Folate 3 Months E78.00 - Pure hypercholesterolemia, unspecified Hemoglobin A1c 3 Months E78.00 - Pure hypercholesterolemia, unspecified Medications: New atorvastatin (Lipitor) 10 mg PO DAILY 30 tabs 4RF E78.00 - Pure hypercholesterolemia, unspecified folic acid 1 mg PO DAILY 30 tabs 0RF E78.00 - Pure hypercholesterolemia, unspecified
--- OUTSIDE RECORDS SUMMARY | 2025-05-05 15:49 | XMS_ITS | Patient Health Record ---
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 Breeder Name Role Phone Mercedes Atwood MD Primary Care Provider Marv Fang Jr Unavailable Reason For Referral No Information Medications Medication SIG (Take, Route, Frequency, Duration) Notes Start Date End Date Status Sutab [id number] MG [address] dose the evening before and second dose the morning of colonoscopy Orally for 1 days 04/13/2025 Active hydroCHLOROthiazide 25 MG TAKE 1 TABLET BY MOUTH EVERY DAY Oral for 90 Days Activ e Lisinopril Active Lisinopril 40 MG Oral for 90 Days Active amLODIPine Besylate 10 MG 10 MG ORALLY D AILY Oral for 90 Days Active Immunizations Vaccine Route Administration Date Status Comme nts Influenza Unknown 07/29/2024 Administered Social History Tobacco Use: Social History Observation Description Date Details (start date - stop date) Current Smoker NA - NA Tobacco Control (Standard) Question Answer Notes Tobacco use: Current smoker AUDIT-C (Standard) Question Answer Notes Did you have a drink contain ing alcohol in the past year? Yes How often did you have a dri nk containing alcohol in the past year? 2 to 3 times a week (3 points) How many drinks did you have on a typical day when you were drinking in the past year? 1 or 2 drinks (0 point) How often did you have six o r more drinks on one occasion in the past year? Never (0 point) Points 3 Interpretation Negative Problems Problem Type SNOMED Code ICD Code Onset Dates Problem Status W/U Status Risk Notes Problem Long-term current use of drug therapy (311695332) Encounter for long-term (current) use of other medications (V58.69) Active confirmed Problem Colon cancer screening (178051202) Colon cancer screening (V76.51) Active confirmed Problem Screening for malignant neoplasm of colon (008226225) Encounter for screening for malignant neoplasm of colon (Z12.11) Active confirmed Problem Pre-procedure evaluation check (179028069) Encounter for other preprocedural examination (Z01.818) Active confirmed Problem H/O: high risk medication (391733912) High risk medication use (Z79.899) Active confirmed Vital Signs Temperature 98.4 degrees Fahrenheit 04/13/2025 Blood pressure diastolic 01 mm Hg 04/13/2025 Height 70 in 04/13/2025 Blood pressure systolic 001 mm Hg 04/13/2025 Weight 199.6 lbs 04/13/2025 BMI 28.64 kg/m2 04/13/2025 Encounters Encounter Location Date Provider Diagnosis [facility] [address] [place] [address] 04/13/2025 Marv Kilpatrick Jr Encounter for screening for malignant neoplasm of colon Z12.11 ; Encounter for other preprocedural examination Z01.818 and High risk medication use Z79.899 Assessments Encounter Date Diagnosis (ICD Code) Assessment Notes Treatment Notes Treatment Clinical Notes Section Notes 04/13/2025 Encounter for screening for malignant neoplasm of colon (ICD-10 - Z12.11) We discussed colonoscopy today. We discussed risks and benefits of the procedure today. He understands these and agrees to proceed. This will be scheduled at his convenience.He is advised to stop hydrochlorothiazide the day before the procedure. 04/13/2025 Encounter for other preprocedural examination (ICD-10 - Z01.818) We discussed colonoscopy today. We discussed risks and benefits of the procedure today. He understands these and agrees to proceed. This will be scheduled at his convenience.He is advised to stop hydrochlorothiazide the day before the procedure. 04/13/2025 High risk medication use (ICD-10 - Z79.899) We discussed colonoscopy today. We discussed risks and benefits of the procedure today. He understands these and agrees to proceed. This will be scheduled at his convenience.He is advised to stop hydrochlorothiazide the day before the procedure. Plan Of Treatment Future Test Test Name Order Date COLONOSCOPY 06/30/2013 COLONOSCOPY 04/13/2025 Next Appt Details Provider Name:Marv green Jr, 05/08/2025 10:40:00 AM, [address] [place] [address] , [place], [place], [phone], Insurance Providers Payer Name Payer Address Payer Phone Subscriber Number Group Number Insured Name Patient Relationship to Insured Coverage Start Date Coverage End Date [facility] [address] [place] [address] [id number] JASS CRAIG Self - patient is the insured 4 Medical (General) History Medical History History ICD Code Hypertension Colonoscopy 08/27, normal, 10-year follo w-up 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
== END 2025-05-05 15:08 | disposition home or self-care (01) ==
LOC: HO.HMCH 14:36
PROVIDERS: PCP Internal Medicine; Visit Provider Internal Medicine
DX: I10 Essential (primary) hypertension (principal); E78.00 Pure hypercholesterolemia, unspecified; E11.65 Type 2 diabetes mellitus with hyperglycemia; E66.3 Overweight; F17.210 Nicotine dependence, cigarettes, uncomplicated

== ENCOUNTER 2025-05-08 08:20 | Day surgery (SDC) | payer BC, SELFPAY ==
[2025-05-06 12:40] VITALS: BMI 28.6
[2025-05-08 08:34] VITALS: BMI 27.9
[2025-05-08 08:39] VITALS: BP 144/70; PULSE 73; RESP 15; TEMP 36.6; O2SAT 99
[2025-05-08] MEDS: Lactated Ringers 1,000 ML 50 ML IVCONT (08:51)
--- NOTE | 2025-05-08 09:56 | HO.ANESPROP2 ---
[facility] Active Problems Active Problems: All Active Problems (Updated 05/06/25 @ 12:44 by Ila Jacobs RN) Overweight (BMI 25.0-29.9) (Acute) Dupuytren's disease of palm of right hand (Acute) Knuckle pad of both hands (Acute) Rib fracture (Acute) Lateral epicondylitis, left elbow (Acute) Lateral epicondylitis of both elbows (Acute) History of endocarditis (Acute) Nicotine dependence, cigarettes, uncomplicated (Acute) Hypercholesterolemia (Acute) Type 2 diabetes mellitus with hyperglycemia (Acute) Hypertension (Acute) Past Medical History Medical History History of endocarditis Hypertension Hypercholesterolemia Type 2 diabetes mellitus with hyperglycemia Nicotine dependence, cigarettes, uncomplicated Functional capacity: independent ambulation Family History Family History Father Lymphoma Family history of problems with anesthesia: No Surgical History Surgical History History of colonoscopy History of shoulder surgery History of tonsillectomy History of vasectomy History of Problems with Anesthesia: No Social History Social History Household Members: Spouse Housing: House Alcohol intake: current Alcohol intake frequency: holidays/special occasions only Comment: once a day 2-3 glasses Patient Tobacco Use Status: Current everyday Tobacco user Tobacco use type: Cigarette Cigarettes Per Day: 18 Years Smoked: (onset 16yo, 1ppd x 48yrs, now 1/4ppd - 40pyh) e-Cigarette/Vaping Use: Never Used Second Hand Smoke Exposure: Yes service: No Current occupational status: employed 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 Cognitive needs: Yes Hearing needs: No Vision needs: Yes Meds Allergies Allergy/AdvReac Type Severity Reaction Status Date / Time oxycodone (OXYCODONE) Allergy Intermediate ITCHING Verified 05/08/25 08:33 penicillin G Allergy Unknown rash Verified 05/08/25 08:33 Active Medications: Current Medications Lactated Ringer's (Lr) 1,000 mls @ 50 mls/hr IVCONT .Q20H ZHOU Last Admin: 05/08/25 08:51 Dose: 50 mls/hr Exam Exam Date and Time: 05/08/25 Height,Weight and Vital Signs: Height 5 ft 10 in Weight 88.2 kg Last Vital Signs Temp 97.8 F 05/08/25 08:39 Pulse 73 05/08/25 08:39 Resp 15 05/08/25 08:39 BP 144/70 H 05/08/25 08:39 Pulse Ox 99 05/08/25 08:39 O2 Del Method Room Air 05/08/25 08:39 Airway Mallampati Class: II TM Dist: >3cm Neck ROM: Full Denture: Upper (partial) Partial: Upper Loose/Missing/Broken Teeth: No (few missing teeth) Heart: rrr Lungs: cta Other: gary normal Assessment and Plan Assessment Anesthesia Assessment: Anesthesia Plan Discussed, Smoking Cess. Discussed and Chart Reviewed Final Anesthetic Review Family History of Problems with Anesthesia: No History of Problems with Anesthesia: No NPO: Yes ASA Class: II Final Preanesthetic Review: No Changes in Pt Med Stat, Meds/Allgs Chart Reviewed and Consent Obtained/Reviewed Patient Risk: Low Procedure Risk: Low Anesthetic Plan Anesthetic Plan: MAC: Disposition: Standard PACU
--- NOTE | 2025-05-08 09:58 | MHC.SHP ---
Pre-Procedural Eval Section A - 24 Hr Update-Section A only Date of Service: 05/08/25 The patient is an INPATIENT: No Changes since office visit: No Cold of Flu in the past 2 weeks, No New Medical Problems, No Changes in Medication and No Patient answered all questions The patient has been examined within 24 hours of the surgical procedure. The History & Physical has been completed within 30 days and I have reviewed it.: Yes Section B - Complete if H&P > 30 days Chief Complaint: screening Allergies: Allergies Allergy/AdvReac Type Severity Reaction Status Date / Time oxycodone (OXYCODONE) Allergy Intermediate ITCHING Verified 05/08/25 08:33 penicillin G Allergy Unknown rash Verified 05/08/25 08:33 Plan I have reviewed the history and physical and performed a pertinent physical examination on my patient. No changes have occurred unless specified. Time Spent With Patient Time: Total time managing care of this patient today ____ minutes.
[2025-05-08 10:38] VITALS: BP 116/64; PULSE 53; RESP 16; TEMP 37.1; O2SAT 97
[2025-05-08 10:57] VITALS: BP 117/69; PULSE 56; RESP 18; TEMP 36.7; O2SAT 97
--- NOTE | 2025-05-08 11:24 | OP_ITS ---
DATE OF SERVICE: 05/08/2025 SURGEON: Marv Kilpatrick MD INDICATIONS: Colon cancer screening. PREOPERATIVE DIAGNOSIS: POSTOPERATIVE DIAGNOSIS: PROCEDURE PERFORMED: Colonoscopy to the terminal ileum. ESTIMATED BLOOD LOSS: COMPLICATIONS: ANESTHESIA: Monitored anesthesia care. ASSISTANTS: SPECIMENS: DESCRIPTION OF PROCEDURE: A history and physical was performed. The risks and benefits of the procedure were explained to the patient. Informed consent was obtained. The patient was placed in the left lateral decubitus position. A digital rectal exam was performed and was found to be normal. The Olympus pediatric video colonoscope was introduced into the rectum and advanced to the cecum. The cecum was identified by transillumination, palpation, and identification of ileocecal valve. Examination was performed. The scope was removed. He tolerated the procedure well and was returned to the recovery area in stable condition. FINDINGS: The terminal ileum was normal. The visualized colonic mucosa was normal. The quality of the prep was good. No polyps were identified. There was mild sigmoid diverticulosis. Retroflexed examination showed moderate-sized internal hemorrhoids. IMPRESSION: Normal colonoscopy. RECOMMENDATION: 1. Follow up as needed. 2. Repeat colonoscopy is recommended in 10 years for average-risk individuals. MD HILARY Boyce/ALESSIO / [id number]
== END 2025-05-08 11:17 | disposition home or self-care (01) ==
PROVIDERS: PCP Internal Medicine; Visit Provider Internal Medicine Gastroenterology
PROC: 0DJD8ZZ Inspection of Lower Intestinal Tract, Via Natural or Artificial Opening Endoscopic (ICD-10-PCS; CPT 45378; principal; 2025-05-08 09:50)
DX: Z12.11 Encounter for screening for malignant neoplasm of colon (principal); K57.30 Diverticulosis of large intestine without perforation or abscess without bleeding; K64.8 Other hemorrhoids; I10 Essential (primary) hypertension; E78.00 Pure hypercholesterolemia, unspecified; E11.65 Type 2 diabetes mellitus with hyperglycemia; Z86.79 Personal history of other diseases of the circulatory system; Z79.899 Other long term (current) drug therapy; Z88.0 Allergy status to penicillin; Z88.5 Allergy status to narcotic agent; F17.210 Nicotine dependence, cigarettes, uncomplicated
CPT/HCPCS: 45378; J2003; J2704; J3010

== ENCOUNTER 2025-08-17 06:04 | Outpatient (REF) | payer BC, SELFPAY ==
--- OUTSIDE RECORDS SUMMARY | 2025-05-08 04:50 | XMS_ITS ---
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 Name Role Phone Mercedes Atwood MD Primary Care Provider Marv Fang Jr REASON FOR VISIT screening colonoscopy Encounters Encounter Location Date Provider Diagnosis [facility] [place] [address] [place] [phone] 05/08/2025 Marv Kilpatrick Jr Plan Of Treatment No Information Progress Notes * ROXANE CRAIGOB:[birth year] (65 yo M)Acc No.[id number]:05/08/2025 COLON WITH MAC Patient: JASS VILLASENOR Provider: Ryan Kilpatrick MD :1960 A ge:64 Y S ex:Male Date:05/08/2025 Address:[address] [place] [address] [address] [id number] Pcp:Mercedes Atwood MD Subjective: * Chief Complaints: * 1 . Screening colonoscopy. * Medical History: Objective: * Vitals: Assessment: Plan: * Treatment: * * The named appointment provid er may or may not be the originator of this progress note, and it is not deemed complete until electronically signed by the appointment provider. Sign off status: Pending * Provider: Ryan Kilpatrick MD Date: 0 05/08/2025 Generated for Printi ng/Famitzig/eTransmitting on: 10/17/2024 06:07 AM EST
--- OUTSIDE RECORDS SUMMARY | 2025-08-17 06:07 | XMS_ITS | Patient Health Record ---
Author Organization [facility] Address [address] [place] [id number] Care Team Providers Care Home Child Care Provider Name Role Phone Po Mercedes LYN Primary Care Provider Marv Fang Jr Unavailable Reason For Referral No Information Medications Medication SIG (Take, Route, Frequency, Duration) Notes Start Date End Date Status Sutab [id number] MG [address] dose the evening before and second dose the morning of colonoscopy Orally; Duration: 1 days 04/13/2025 Active hydroCHLOROthiazide 25 MG TAKE 1 TABLET BY MOUTH EVERY DAY Oral; Duration: 90 Days Active Lisinopril Active Lisinopril 40 MG Oral; Duration: 90 Days Active amLODIPine Besylate 10 MG 10 MG ORALLY D AILY Oral; Duration: 90 Days Active Immunizations Vaccine Route Administration [...] Problem Long-term current use of drug therapy (701967767) Encounter for long-term (current) use of other medications (V58.69) Active confirmed Problem Colon cancer screening (581328206) Colon cancer screening (V76.51) Active confirmed Problem Screening for malignant neoplasm of colon (965261822) Encounter for screening for malignant neoplasm of colon (Z12.11) Active confirmed Problem Pre-procedure evaluation check (613101009) Encounter for other preprocedural examination (Z01.818) Active confirmed Problem H/O: high risk medication (922428074) High risk medication use (Z79.899) Active confirmed Vital Signs Temperature 98.4 degrees Fahrenheit 04/13/2025 Blood pressure diastolic 01 mm Hg 04/13/2025 Height 70 in 04/13/2025 Blood pressure systolic 001 mm Hg 04/13/2025 Weight 199.6 lbs 04/13/2025 BMI 28.64 kg/m2 04/13/2025 Encounters Encounter Location Date Provider Diagnosis [facility] [address] [place], [place] [id number] 05/08/2025 Marv Kilpatrick Jr [facility] [address] [place] [address] 04/13/2025 Marv Kilpatrick Jr Encounter for screening [...] Name Order Date COLONOSCOPY 06/30/2013 COLONOSCOPY 04/13/2025 Insurance Providers Payer Name Payer Address Payer Phone Subscriber Number Group Number Insured Name Patient Relationship to Insured Coverage Start Date Coverage End Date [facility] [address] [place] [address] [id number] JASS CRAIG Self - patient is the insured 4 Medical (General) History Medical History History ICD Code Hypertension Colonoscopy 08/27, normal, 10-year follo w-up 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
[2025-08-17 11:13] LABS: Alanine Aminotransferase 68 U/L (0-40); Albumin Level 4.6 g/dL (3.5-5.0); Alkaline Phosphatase 59 U/L (39-117); Anion Gap 14 (12-20); Aspartate Amino Transferase 57 U/L (5-37); Blood Urea Nitrogen 10 mg/dL (9-16); Calcium 9.1 mg/dL (8.4-10.2); Carbon Dioxide 27 mmol/L (22-29); Chloride 102 mmol/L (96-108); Cholesterol 153 mg/dL (<200); Estimated Glomerular Filt Rate > 60; HDL Cholesterol 56 mg/dL (>40); Potassium 3.9 mmol/L (3.3-5.1); Sodium 139 mmol/L (135-145); Total Protein 7.6 g/dL (6.5-8.0); Triglycerides 138 mg/dL (<150)
[2025-08-17 11:35] LABS: Folate 4.3 ng/mL (> or = 4.0); Vitamin B12 318 pg/mL (200-900)
== END 2025-08-17 06:05 | disposition home or self-care (01) ==
LOC: HO.HMGCLDS 06:04
PROVIDERS: PCP Internal Medicine; Visit Provider Internal Medicine
DX: Z13.1 Encounter for screening for diabetes mellitus (principal); E78.00 Pure hypercholesterolemia, unspecified
CPT/HCPCS: 36415; 80053; 80061; 82607; 82746; 83036

== ENCOUNTER 2025-08-21 14:31 | Outpatient (AMB) | payer BC, SELFPAY ==
--- NOTE | 2025-08-21 14:35 | A.OFFPC_ITS ---
Vital Signs 08/21/25 14:36 Height 5 ft 10 in Weight 197 lb BMI 28.3 BP 158/62 H Blood Pressure Location Lt brachial Position Sitting Pulse 93 Pulse Source Pulse Oximeter Temp 97.5 F Temp Source Temporal Artery Scan Pulse Oximetry (%) 99 Oxygen Delivery Method Room Air Intake Visit Reasons: Follow Up Allergies oxycodone (OXYCODONE) Allergy (Intermediate, Verified 08/21/25 14:47) ITCHING penicillin G Allergy (Unknown, Verified 08/21/25 14:47) rash Tobacco use date assessed: 08/21/25 Dental Screening Dental Screen Date: 08/21/25 Did you have a dental visit in the last 12 months?: Yes Did you have a dental problem in the last 6 months where you did not have access to dental care?: No Was dental information given to patient?: Patient has dentist [facility] Medical History History of endocarditis Hypertension Hypercholesterolemia Type 2 diabetes mellitus with hyperglycemia Nicotine dependence, cigarettes, uncomplicated Surgical History History of colonoscopy History of shoulder surgery History of tonsillectomy History of vasectomy Family History Father Lymphoma Social History Household Members: Spouse Housing: House Alcohol intake: current Alcohol intake frequency: holidays/special occasions only Comment: once a day 2-3 glasses Patient Tobacco Use Status: Current everyday Tobacco user Tobacco use type: Cigarette Cigarettes Per Day: 18 Years Smoked: (onset 16yo, 1ppd x 48yrs, now 1/4ppd - 40pyh) e-Cigarette/Vaping Use: Never Used Second Hand Smoke Exposure: Yes service: No Current occupational status: employed 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 1. Little interest or pleasure in doing things: not at all 2. Feeling down, depressed, or hopeless: not at all 3. Trouble falling or staying asleep, or sleeping too much: not at all 4. Feeling tired or having little energy: not at all 5. Poor appetite or overeating: not at all 6. Feeling bad about yourself - or that you are a failure or have let yourself or your family down: not at all 7. Trouble concentrating on things, such as reading the newspaper or watching television: not at all 8. Moving or speaking so slowly that other people could have noticed. Or the opposite - being so fidgety or restless that you have been moving around a lot more than usual: not at all 9. Thoughts that you would be better off or of hurting yourself in some way: not at all Total score: 0 Source: Developed by Drs. Vamsi Rivera, Mery Bowers, Collin Wilalms and colleagues, with an educational leandra from [employer]. Thrive Questionnaire Date Thrive assessed: 05/05/25 I am a: Patient What is your living situation today?: I have a steady place to live Within the past 12 months, did the food you bought not last and you didn't have the money to get more?: Often true Within the past 12 months, did you worry whether your food would run out before you got money to buy more?: Never true Do you have trouble paying for medicines?: No Do you have trouble getting transportation to medical appointments?: No Do you have trouble paying your heating and electricity bill?: No Do you have trouble taking care of your child, family member or friend?: No Do you have trouble with day-to-day activities such as bathing, preparing meals, shopping, managing finances, etc.?: No Are you currently unemployed and looking for a job?: No Are you interested in more education?: No Please select the resources that you would like help with: None Currently or been in a relationship where the following occur: No concerns reported THRIVE Score: 1 AUDIT C Alcohol Use Questionnaire (AUDIT-C) 1. How often do you have a drink containing alcohol?: 2-3 times a week 2. How many drinks containing alcohol do you have on a typical day when you are drinking?: 3 or 4 3. How often do you have six or more drinks on one occasion?: Never Total Score: 4 HAIM-7 AMB Questionnaire HAIM-7 Date HAIM - 7 assessed: 10/20/24 Feeling nervous, anxious, or on edge: 0 = Not at all Not being able to stop or control worryin = Not at all Worrying too much about different things: 0 = Not at all Trouble relaxin = Not at all Being so restless that it is hard to sit still: 0 = Not at all Becoming easily annoyed or irritable: 0 = Not at all Feeling afraid as if something awful might happen: 0 = Not at all Total HAIM-7 score (0-4 normal; 5-9 mild; 10-14 moderate; 15-21 severe): 0 Source: Developed by Drs. Vamsi Rivera, Mery Bowers, Collin Willams and colleagues, with an educational leandra from [employer]. Physical exam (Primary Care) Vital Signs: Last Vital Signs Temp 97.5 F 08/21/25 14:36 Pulse 93 08/21/25 14:36 BP 158/62 H 08/21/25 14:36 Pulse Ox 99 08/21/25 14:36 Oxygen Delivery Method Room Air 08/21/25 14:36 BMI result Body Mass Index 28.3 Tobacco/Smoking Status: Tobacco use Status Tobacco use date assessed 08/21/25 08/21/25 14:48 Patient Tobacco Use Status Current everyday Tobacco 08/21/25 14:35 Tobacco use type Cigarette 08/21/25 14:35 e-Cigarette/Vaping Use Never Used 08/21/25 14:35 PHQ-9: PHQ-9 Score PHQ-9: Total score 0 08/21/25 15:32 Thrive Assessment: Date of Thrive Assessment Date Thrive assessed 05/05/25 08/21/25 14:35 Currently or been in a relationship where the following occur: No concerns reported Const General: alert; No acute distress Eyes Conjunctivae: conjunctivae normal Resp Auscultation: clear to auscultation bilaterally Cardio Rate: regular rate Rhythm: regular rhythm GI Inspection: Yes normal to inspection Extrem General: Yes normal to inspection and No edema Office Procedures Flu Questionnaire Does the patient have a severe egg allergy?: No Does the patient have severe life threatening allergies?: No Does the patient have a fever or illness today?: No Has the patient ever had Guillain-[place] Syndrome?: No Has the patient ever had any past reaction to a flu shot?: No Immunizations Fluarix [id number] (PF) 45 mcg (15 mcg x 3)/0.5 mL IM syringe Performing Provider: Mercedes Atwood MD Performing Location: [facility] Administered by: Teodora Perez CMA on 08/21/25 15:33 Dose Route Admin Location Dispensed Lot Number Expiration Date NDC [employer] 0.5 mL IM Left Deltoid 0.5 mL [id number] 04/13/26 [id number] [employer] VIS Given Date VIS Provided VIS Publication Date 08/21/25 Single Vaccine 24 Eligibility Eligibility Date Funding Source Not [facility] Eligible 08/21/25 Private Coding Level of Care Code Est Pt Level 4 (21632) Complex EM visit Add On G2211 Diagnoses Type 2 diabetes mellitus with hyperglycemia E11.65 Hypertension I10 Hypercholesterolemia E78.00 Overweight (BMI 25.0-29.9) E66.3 Assessment & Plan Assessment & Plan (1) Type 2 diabetes mellitus with hyperglycemia: Comment: diet control-A1C 6.3% on 05/01/25 [facility] Code(s): E11.65 - Type 2 diabetes mellitus with hyperglycemia Category: Medical Plan: Decrease the amount of carbohydrate intake, pasta, bread, rice and potatoes are all sugar and that is aside from all the sweet stuff, remember that fruits are good but they are Sweet also. Hemoglobin A1c goal of less than 6.5. Patient diet controlled (2) Hypertension: Code(s): I10 - Essential (primary) hypertension Category: Medical Plan: Continue with blood pressure medication. Decrease salt intake and exercise on lisinopril 40 mg once a day and hydrochlorothiazide 25 mg once a day and amlodipine 10 mg once a day (3) Hypercholesterolemia: Code(s): E78.00 - Pure hypercholesterolemia, unspecified Category: Medical Plan: Avoid fried foods, chicken skin, eggs, butter margarine, pastries and meat. Be it pork or beef they have a lot of cholesterol LDL goal of less than 100 and triglyceride of less than 150 on atorvastatin 10 mg once a day (4) Overweight (BMI 25.0-29.9): Code(s): E66.3 - Overweight Category: Medical Plan: Diet and exercise Plan History of Present Illness The patient is a 65-year-old overweight male presenting for a follow-up visit. His medical history is significant for diabetes mellitus, hypertension, hypercholesterolemia, and a history of endocarditis. The patient is also a smoker. His diabetes is diet-controlled, and his hemoglobin A1c has shown steady improvement, decreasing from 6.5 in 2023 to 6.3, and most recently to 6.2. Recent lab work from May 01 showed a blood glucose of 100. For hypertension, the patient takes lisinopril 40 mg, hydrochlorothiazide 25 mg, and amlodipine 10 mg daily. His cholesterol has improved significantly on atorvastatin 10 mg daily, with a recent LDL of 70 mg/dL and triglycerides of 138 mg/dL. He reports following a Mediterranean diet, which has contributed to weight loss. Further history includes persistently elevated liver function tests, associated with a known history of fatty liver. Lab work from May 01 showed a normal blood count, normal electrolytes, good renal function, and good B12 and folic acid levels. A urine test was negative for proteinuria. Regarding health maintenance, the patient completed a colonoscopy in April 2025, which was normal, with the next one recommended in 10 years. He is up-to-date with his shingles and tetanus shots and had his last eye exam in February, which was normal. Health Maintenance The patient received an influenza vaccine during the visit. He is up-to-date with shingles, tetanus, colonoscopy, and eye screenings. He was counseled to remain active and well-hydrated. Social History - Tobacco Use: Patient is a smoker. - Diet: Reports adherence to a Mediterranean diet, characterized by a large lunch and typically skipping dinner, which has led to weight loss. - Activity Level: Advised to remain active. Review of Systems - Constitutional: Reports weight loss. - Eyes: Denies any vision problems; reports last eye exam was normal. - Gastrointestinal: Reports good bowel movements. Physical Exam - Vital Signs: Blood pressure is elevated at the time of examination. - Respiratory: Auscultation of breath sounds performed. - Constitutional: Observation of recent weight loss. Results - Labs (May 01/Recent): - CBC: Normal blood count, white blood cell count, and platelet count; not anemic. - CMP: Normal sodium and potassium. Renal function is good. Blood glucose is 100. - Hemoglobin A1c: 6.2%, improved from 6.3% previously and 6.5% in 2023. - Lipid Panel: LDL is 70 mg/dL, triglycerides are 138 mg/dL, HDL is 56. - Liver Function Tests: Persistently elevated. - Vitamins: B12 and folic acid levels are good. - Urinalysis: Negative for proteinuria. - Procedures: - Colonoscopy (April 2025): Normal. Plan Patient was informed and verbally consented to the use of an ambient scribe for clinic note documentation during this visit. 1. Hypertension The patient's blood pressure was elevated in the office today. No changes will be made to the current regimen of lisinopril 40 mg, hydrochlorothiazide 25 mg, and amlodipine 10 mg at this time, as prior numbers have been good. The plan is to monitor blood pressure at home, with an ideal goal of 130/80 mmHg. The patient was advised that consistent readings above 140 systolic or 90 diastolic would be a concern requiring intervention. 2. Diabetes Mellitus The patient is managing his diabetes well with diet alone, with an impressive downward trend in his hemoglobin A1c, now at 6.2%. The goal remains an A1c of less than 6.5%. He is advised to continue his current diet and exercise regimen. 3. Hypercholesterolemia The patient has shown dramatic improvement in his cholesterol levels, with an LDL of 70 mg/dL and triglycerides of 138 mg/dL, meeting the goals of less than 70 mg/dL and less than 150 mg/dL, respectively. He will continue taking atorvastatin 10 mg daily and maintain his current diet and exercise plan. 4. Fatty Liver With Elevated Liver Enzymes The patient has a known history of fatty liver with persistently elevated but stable liver enzymes. The plan is to continue monitoring these levels. Discussion Notes I discussed with the patient that his blood pressure was a bit high in the office today, but since his numbers were good before, we would not change his three blood pressure medications at this time. I emphasized the need to monitor his blood pressure at home and what levels would be concerning. I reviewed his lab work, highlighting the excellent progress he has made with his diet-controlled diabetes and cholesterol management, which has improved dramatically. We noted his HbA1c is now 6.2 and his LDL is 70. I also mentioned that his liver numbers are stable and we will continue to keep an eye on them. We discussed his immunizations, and he agreed to receive the flu shot today, noting he is up to date on his shingles and tetanus vaccines. I provided anticipatory guidance on staying hydrated and active and reminded him that his next colonoscopy is not for another 10 years. Patient Instructions - Please check your blood pressure at home. - Contact us if the top number is usually over 140 or the bottom number is over 90. - Continue taking your current medications for blood pressure and cholesterol as prescribed. - You are doing a great job with your Mediterranean diet; please continue with it as it has helped a lot with your diabetes and cholesterol. - Remember to stay active and drink plenty of water. - We gave you a flu shot today. Orders: Orders Influenza [id number] Immunization Today Z23 - Encounter for immunization
[2025-08-21 14:36] VITALS: BP 158/62; PULSE 93; TEMP 36.4; O2SAT 99; BMI 28.3
== END 2025-08-21 15:34 | disposition home or self-care (01) ==
LOC: HO.HMCH 14:32
PROVIDERS: PCP Internal Medicine; Visit Provider Internal Medicine
DX: E11.65 Type 2 diabetes mellitus with hyperglycemia (principal); I10 Essential (primary) hypertension; E78.00 Pure hypercholesterolemia, unspecified; E66.3 Overweight; Z23 Encounter for immunization

== ENCOUNTER → 2025-08-21 14:31 | Outpatient (BNVA) | payer BC, SELFPAY | PROVIDERS: PCP Internal Medicine; Visit Provider Internal Medicine | DX: Z23 Encounter for immunization (principal); E11.65 Type 2 diabetes mellitus with hyperglycemia; I10 Essential (primary) hypertension; E78.00 Pure hypercholesterolemia, unspecified; E66.3 Overweight; F17.210 Nicotine dependence, cigarettes, uncomplicated; Z68.28 Body mass index [BMI] 28.0-28.9, adult | CPT/HCPCS: 90471; 90656; 96127 ==